=== PATIENT | male | born 1940 | race Two or more races ===

== ENCOUNTER 2021-12-10 09:23 | Inpatient (IN) | payer MEDICARE, OTHER, SELFPAY ==
[~2021-12-10] VITALS: Ht 185.4 cm; Wt 81.6 kg
[~2021-12-10 09:23] MED LIST: ASPI81EC97
[2021-12-10 09:26] VITALS: BP 139/53
--- NOTE | 2021-12-10 09:40 | NUR ---
20G IV ESTABLISHED TO RIGHT AC, LABS DRAWN BEDSIDE AND MOISE SWAB COLLECTED AND WALKED TO LAB.
[2021-12-10] MEDS ORDERED: NACL 0.9% 1,000 ML IV ONE (10:20)
--- NOTE | 2021-12-10 10:35 | NUR ---
PATIENT TAKEN TO CT VIA GURNEY.
[2021-12-10 10:42] LABS: BASOPHILS % (AUTO) 0.1 % (0.0-2.0); HEMATOCRIT 35.8 % (36-52); HEMOGLOBIN 11.8 g/dL (12.0-18.0); LYMPHOCYTES # (AUTO) 0.7 K/uL (2.0-11.5); LYMPHOCYTES % (AUTO) 3.5 % (20.5-51.1); MEAN CORPUSCULAR HEMOGLOBIN 30 pg (27-31); MEAN CORPUSCULAR HGB CONC 33 g/dL (33-37); MEAN CORPUSCULAR VOLUME 90.3 fL (80-94); MONOCYTES # (AUTO) 0.8 K/uL (0.8-1.0); NEUTROPHILS # (AUTO) 18.3 K/uL (1.8-7.7); NEUTROPHILS % (AUTO) 92.4 % (42.2-75.2); PLATELET COUNT (AUTO) 401 K/uL (140-450); RED BLOOD CELL COUNT(AUTO) 3.96 MIL/uL (4.20-6.10); RED CELL DISTRIBUTION WIDTH 14.2 % (11.6-13.7); WHITE BLOOD COUNT (AUTO) 19.9 K/uL (4.8-10.8)
--- NOTE | 2021-12-10 10:45 | NUR ---
80/M NAYAN FROM [facility]. PER EMS NEIGHBORS CALLED 911 REQUESTING A WELLNESS CHECK. EMS STATES UPON ARRIVAL PATIENT WAS FOUND LYING ON GROUND INSIDE HIS MOBILE HOME. PATIENT UNABLE TO STATE HOW HE ENDED UP ON THE GROUND OR HOW LONG HE WAS DOWN. EMS STATES PATIENTS BASELINE ACCORDING TO NEIGHBORS IS AOX4 AND AMBULATORY, UPON ARRIVAL PATIENT IS ORIENTED TO NAME AND PLACE. PATIENT PRESENTS WITH CELLULITIS TO BILATERAL LEGS, DRIED DRESSINGS AND SOCKS TO BOTH LEGS, PATIENT STATES ISSUE HAS BEEN ONGOING FOR ONE MONTH. PATIENT DENIES ANY PAIN OR DISCOMFORT, STATES HE HAS NOT BEEN EATING MUCH, ABLE TO ANSWER QUESTIONS WHEN ASKED, PATIENT IS SLOW TO ANSWER. DENIES N/V/D, CP, SOB OR URINARY SYMPTOMS.
--- NOTE | 2021-12-10 11:45 | NUR ---
PATIENT STATES HE IS UNABLE TO PROVIDE URINE AT THIS TIME, DR. AVILEZ MADE AWARE.
[2021-12-10] MEDS ORDERED: ceFAZolin 1,000 MG VIAL ONE (11:51)
[2021-12-10 12:06] LABS: ANION GAP 16.8 (8-16); ASPARTATE AMINOTRANSFERASE 102 U/L (15-37); CHLORIDE 108 mmol/L (98-107); CREATININE 1.8 mg/dL (0.6-1.3); GLUCOSE 105 mg/dL (74-106); POTASSIUM 4.8 mmol/L (3.5-5.1); SODIUM SERUM 140 mmol/L (136-145); TOTAL BILIRUBIN 1.1 mg/dL (0.0-1.0)
[2021-12-10 12:11] LABS: UREA NITROGEN, BLOOD 78 mg/dL (7-18)
[2021-12-10 12:33] LABS: CKMB RELATIVE INDEX 2.8 (0.0-2.5); CREATINE KINASE MB 37.6 ng/mL (0-3.6)
--- NOTE | 2021-12-10 14:00 | NUR ---
PATIENT APPEARS TO BE RESTING WITH EYES CLOSED, PROVIDED WITH BLANKET AND PILLOW FOR COMFORT. ON BEDSIDE GLUE COOK, WILL CONTINUE TO MONITOR.
[2021-12-10] MEDS ORDERED: ONDANSETRON 4 MG/2 ML VIAL IVP PRN (14:15)
[2021-12-10] MEDS ORDERED: POTASSIUM CHLORIDE 10 MEQ TABER PO PRN (14:15)
[2021-12-10] MEDS ORDERED: HYDROcodone/APAP 5/325 MG 1 TAB TAB PO PRN (14:15)
[2021-12-10] MEDS ORDERED: MORPHINE SULFATE 4 MG/ML SYR IVP PRN (14:15)
[2021-12-10] MEDS ORDERED: ACETAMINOPHEN 325 MG TAB PO PRN (14:15)
[2021-12-10] MEDS ORDERED: MAG SULF 2000 MG/WATER PREMIX 50 ML IV PRN (14:15)
[2021-12-10] MEDS ORDERED: MAGNESIUM OXIDE 400 MG TAB PO PRN (14:15)
--- NOTE | 2021-12-10 16:55 | NUR ---
PATIENT PROVIDED URINE WITH BEDSIDE URINAL, SAMPLE COLLECTED AND HANDED TO DRY PRESS OPERATOR HELPER.
[2021-12-10 17:00] LABS: BILIRUBIN,URINE 1+ (NEGATIVE); BLOOD, URINE 3+ (NEGATIVE); COLOR,URINE YELLOW (YELLOW); LEUKOCYTE ESTERASE ,URINE 1+ (NEGATIVE); NITRITE, URINE NEGATIVE (NEGATIVE); PH,URINE 5.5 (5.0-9.0); UGLUCOSE NEGATIVE (NEGATIVE)
--- NOTE | 2021-12-10 17:45 | NUR ---
PATIENT WET THE BED, WITH THE HELP OF CHAZ GONZÁLES, PATIENTS SHEETS, UNDER PADS AND GOWN CHANGED. PATIENT REPOSITIONED IN BED, LIGHTS DIMMED FOR COMFORT. PATIENT ON BEDSIDE MAIL ORDER CLERK, WILL CONTINUE TO MONITOR.
[2021-12-10] MEDS ORDERED: ATORVASTATIN 20 MG TAB PO SCH (18:41)
[2021-12-10 18:53] LABS: APPEARANCE,URINE HAZY (CLEAR)
[2021-12-10 18:59] LABS: WBC,URINE 0-5 /HPF (0-5)
[2021-12-10] MEDS ORDERED: ECOTRIN 81 MG TABEC PO SCH (19:00)
--- NOTE | 2021-12-10 19:28 | NUR ---
PT REPORT RECEIVED FROM MARYCHUY LIMON FOR CONTINUITY OF PT CARE AT THIS TIME.
--- NOTE | 2021-12-10 19:33 | NUR ---
Pt report given to MARYCHUY BECK. Transfer of care at this time.
--- NOTE | 2021-12-10 19:36 | NUR ---
PT LAYING SUPINE IN BED W BLANKET ON. PT AWAKE AOX3 GCS14. PT BREATHING EVEN AND UNLABORED. PT DENIES ANY PAIN. VSS. ALL PT NEEDS MET AT THIS TIME. NAD NOTED, WILL CONTINUE TO MONITOR.
[2021-12-10] MEDS: PIPERACILLIN/TAZOBACTAM 2.25 GM in DEXTROSE 5% 50 ML IV SCH (21:00)
[2021-12-10] MEDS ORDERED: VANCOMYCIN PER PHARMACY MC PRN (21:55)
[2021-12-10 21:59] LABS: BARBITURATE, URINE NEGATIVE ng/ml (NEG <=200); BENZODIAZEPINE, URINE NEGATIVE ng/mL (NEG <=200); CANNABINOID, URINE NEGATIVE ng/mL (NEG <=50); COCAINE, URINE NEGATIVE ng/mL (NEG <=300); OPIATE, URINE NEGATIVE ng/mL (NEG <=2000); PHENCYCLIDINE SCREEN,URINE NEGATIVE ng/mL (NEG <=25)
--- NOTE | 2021-12-10 22:01 | NUR ---
sPOKE W FOR UPDATE ON PT INFO AT THIS TIME.
[2021-12-10] MEDS ORDERED: PIPERACILLIN/TAZOBACTAM 2.25 GM VIAL IV ONE (22:22)
--- NOTE | 2021-12-10 22:43 | NUR ---
HEP MEDICATION HELD D/T NO PTT AT THIS TIME.
--- NOTE | 2021-12-10 23:43 | NUR ---
PT APPREARS TO BE RESTING W EYES CLOSED IN SUPINE POSITION. BED LOCKED IN LOWEST POSITION W X2 SIDERAILS UP. BREATHING EVEN AND UNLABORED. NAD NOTED, WILL CONTINUE TO MONITOR.. VSS.
[2021-12-11] MEDS ORDERED: VANCOMYCIN 1GM/DEXT 5% PREMIX 200 ML IV SCH (00:30)
--- NOTE | 2021-12-11 03:28 | NUR ---
PT PROVIDED W WATER AT THIS TIME. ALL NEEDS MET.
[2021-12-11] MEDS ORDERED: PIPERACILLIN/TAZOBACTAM 2.25 GM VIAL IV ONE ×3 (05:28→21:47)
[2021-12-11] MEDS: PIPERACILLIN/TAZOBACTAM 2.25 GM in DEXTROSE 5% 50 ML IV SCH ×3 (06:01→23:10)
--- NOTE | 2021-12-11 06:04 | NUR ---
PT PROVIDED W WATER AT THIS TIME. ALL NEEDS MET.
--- NOTE | 2021-12-11 07:19 | NUR ---
Pt report given to MARYCHUY GONSALEZ. Transfer of care at this time.
--- NOTE | 2021-12-11 07:20 | NUR ---
REPORT RECEIVED FROM MARYCHUY BECK FOR TRANSFER OF CARE
[2021-12-11 07:39] LABS: BASOPHILS % (AUTO) 0.1 % (0.0-2.0); HEMATOCRIT 39.3 % (36-52); HEMOGLOBIN 12.7 g/dL (12.0-18.0); LYMPHOCYTES # (AUTO) 0.4 K/uL (2.0-11.5); LYMPHOCYTES % (AUTO) 1.8 % (20.5-51.1); MEAN CORPUSCULAR HEMOGLOBIN 29 pg (27-31); MEAN CORPUSCULAR HGB CONC 32 g/dL (33-37); MEAN CORPUSCULAR VOLUME 90.7 fL (80-94); MONOCYTES # (AUTO) 0.5 K/uL (0.8-1.0); NEUTROPHILS # (AUTO) 21.4 K/uL (1.8-7.7); NEUTROPHILS % (AUTO) 96.1 % (42.2-75.2); PLATELET COUNT (AUTO) 309 K/uL (140-450); RED BLOOD CELL COUNT(AUTO) 4.33 MIL/uL (4.20-6.10); RED CELL DISTRIBUTION WIDTH 13.9 % (11.6-13.7); WHITE BLOOD COUNT (AUTO) 22.2 K/uL (4.8-10.8)
--- NOTE | 2021-12-11 08:12 | NUR ---
MED REC COMPLETED FOR PATIENT
[2021-12-11 08:22] LABS: ALBUMIN 1.8 g/dL (3.4-5.0); ANION GAP 18.2 (8-16); ASPARTATE AMINOTRANSFERASE 103 U/L (15-37); CARBON DIOXIDE 20.8 mmol/L (21-32); CHLORIDE 110 mmol/L (98-107); CREATININE 1.4 mg/dL (0.6-1.3); GLUCOSE 85 mg/dL (74-106); MAGNESIUM 2.5 mg/dL (1.8-2.4); SODIUM SERUM 144 mmol/L (136-145)
[2021-12-11 08:29] LABS: UREA NITROGEN, BLOOD 66 mg/dL (7-18)
--- NOTE | 2021-12-11 08:43 | NUR ---
PT ADMITTED 12/10/[address] SMALL TO TELE. PT TELE HOLD IN ED BED 11
[2021-12-11] MEDS ORDERED: VANCOMYCIN 1,000 MG VIAL ONE (08:50)
--- NOTE | 2021-12-11 09:00 | NUR ---
PT CLEANED BEDSIDE AND PROVIDED WITH FRESH LINEN AND DIAPER
[2021-12-11] MEDS: VANCOMYCIN 1,000 MG in DEXTROSE 5% 250 ML IV SCH (09:14)
--- NOTE | 2021-12-11 09:56 | NUR ---
Patient appears to be resting comfortably in bed. Vital Signs within normal limits. Respirations even and unlabored.
--- NOTE | 2021-12-11 11:20 | NUR ---
PT EATING BREAKFAST TRAY BEDISDE
--- NOTE | 2021-12-11 14:02 | NUR ---
Patient appears to be resting comfortably in bed. Vital Signs within normal limits. Respirations even and unlabored.
--- NOTE | 2021-12-11 14:18 | NUR ---
PT CLEANED BEDSIDE AND PROVIDED WITH FRESH LINEN AND DIAPER
--- NOTE | 2021-12-11 16:31 | NUR ---
PATIENT HAS BEEN SCREENED AND CATEGORIZED MODERATE NUTRITION RISK. PATIENT WILL BE SEEN WITHIN 3-5 DAYS OF ADMISSION. [address]
--- NOTE | 2021-12-11 18:13 | NUR ---
Patient appears to be resting comfortably in bed. Vital Signs within normal limits. Respirations even and unlabored.
--- NOTE | 2021-12-11 19:38 | NUR ---
Pt report given to MARYCHUY KNIGHT. Transfer of care at this time.
--- NOTE | 2021-12-11 19:42 | NUR ---
PATIENT IN THE MIDDLE OF DINNER. TALKING AND FOLLOWING COMMANDS. 10CC FLUSHED THROUGH IV. GCS 14. AAOX3- CONFUSED. VSS. NO SIGNS OF DISTRESS NOTED. SAFETY MEASURES IN PLACE, ATTACHED TO MONITOR AND WILL CONTINUE TO MONITOR PATIENT.
[2021-12-11] MEDS ORDERED: DEXTROSE 50% 50 ML SYR IVP PRN (21:40)
[2021-12-11] MEDS: METOPROLOL 25 MG TAB PO SCH (21:56)
--- NOTE | 2021-12-11 23:29 | NUR ---
provided pericare for patient, used chucks and diaper, and repositioned patient to the right side. patient tolerated well. Safety measures are in placed, attached to monitot and will continue to monitor patient.
--- NOTE | 2021-12-12 00:22 | NUR ---
Patient will be admitted to care of Jeff ESPINOSA. Admited to Telemetry. Will go to room 121B. Belongings list completed. Report to Karmen PERRIN.
--- NOTE | 2021-12-12 00:59 | NUR ---
tx patient to the floor via rkaty
--- NOTE | 2021-12-12 01:15 | NUR ---
Patient received from ER as a new Tele admission. Patient is AA&Ox3 with periods of confusion and able to follow commands. Chest rise is even and unlabored with diminished lung sounds on RA. Normal heart sounds are present and was attached to a monument setter. Active bowel sounds x4 on auscultation, denies pain with palpation, no noted distention. Patient has wounds on both legs bilaterally and dressing change was provided and pictures were taken to add to Patient's chart. Deep pressure wounds were noted to the R foot that were closed pictures are in the chart. There was redness noticed on the patients sacrum and a pressure ulcer to the left buttocks. Wound care was provided to the sacral area and a picture was also taken. PIV were noted to Left and Right AC both 20G patent with no s/s of infiltration. Patient is currently stable and has been oriented to the call light, room and staff. Bed is locked in the lowest position, with bed rails up. Will continue to monitor.
[2021-12-12 03:51] VITALS: BP 124/52
[2021-12-12] MEDS ORDERED: PIPERACILLIN/TAZOBACTAM 2.25 GM VIAL IV ONE (04:20)
[2021-12-12] MEDS: PIPERACILLIN/TAZOBACTAM 2.25 GM in DEXTROSE 5% 50 ML IV SCH ×3 (04:51→21:20)
[2021-12-12] MEDS: BLOOD GLUCOSE MONITORING 1 DEV DEV FS SCH ×4 (06:42→21:21)
--- NOTE | 2021-12-12 07:36 | NUR ---
Patient is currently resting with no s/s of distress noted at this time. Chest rise is even and unlabored. Patient is able to verbalize needs and has call light within reach. All current needs have been met throughout the shift. Bed is locked in the lowest position with bed rails up. Will differ further care to AM shift for continuity of care.
--- NOTE | 2021-12-12 07:37 | NUR ---
BEDSIDE REPORT RECEIVED FROM NAPPER FIXER NURSE , PT IN BE BED IN LOW POSITION , BED ALARM IS ON, BELONGINGS WITHIN REACH, CALL LIGHT WITHIN REACH , ALL SAFETY MEASURES ARE IN PLACE. PATIENT ASKED TO CALL FOR ASSISTANCE BEFORE GETTING OUT OF BED
[2021-12-12 08:00] VITALS: BP 125/59
[2021-12-12] MEDS: ATORVASTATIN 20 MG TAB PO SCH (08:44)
[2021-12-12] MEDS: ASPIRIN 81 MG TAB.CHEW PO SCH (08:44)
[2021-12-12] MEDS: METOPROLOL 25 MG TAB PO SCH ×2 (08:44→21:19)
--- NOTE | 2021-12-12 08:52 | NUR ---
patient medications given per md order. pt educated and verbalized understanding , pt tolerated thin liquids well. patient advised to call for any needs and oriented to room and hospital policies. all safety measures are in place.
[2021-12-12] MEDS: VANCOMYCIN 1,000 MG in DEXTROSE 5% 250 ML IV SCH (09:41)
[2021-12-12 10:14] LABS: BASOPHILS % (AUTO) 0.2 % (0.0-2.0); EOSINOPHILS % (AUTO) 0.4 % (0.0-4.0); HEMATOCRIT 36.1 % (36-52); HEMOGLOBIN 11.8 g/dL (12.0-18.0); LYMPHOCYTES # (AUTO) 0.8 K/uL (2.0-11.5); LYMPHOCYTES % (AUTO) 6.6 % (20.5-51.1); MEAN CORPUSCULAR HEMOGLOBIN 30 pg (27-31); MEAN CORPUSCULAR HGB CONC 33 g/dL (33-37); MEAN CORPUSCULAR VOLUME 90.7 fL (80-94); MONOCYTES # (AUTO) 0.3 K/uL (0.8-1.0); MONOCYTES % (AUTO) 2.6 % (1.7-9.3); NEUTROPHILS # (AUTO) 10.6 K/uL (1.8-7.7); NEUTROPHILS % (AUTO) 90.2 % (42.2-75.2); PLATELET COUNT (AUTO) 353 K/uL (140-450); RED BLOOD CELL COUNT(AUTO) 3.97 MIL/uL (4.20-6.10); RED CELL DISTRIBUTION WIDTH 13.9 % (11.6-13.7); WHITE BLOOD COUNT (AUTO) 11.7 K/uL (4.8-10.8)
[2021-12-12 10:22] LABS: ALBUMIN 1.8 g/dL (3.4-5.0); ANION GAP 10.9 (8-16); ASPARTATE AMINOTRANSFERASE 103 U/L (15-37); CARBON DIOXIDE 27.4 mmol/L (21-32); CHLORIDE 109 mmol/L (98-107); CREATININE 1.6 mg/dL (0.6-1.3); GLUCOSE 127 mg/dL (74-106); MAGNESIUM 2.3 mg/dL (1.8-2.4); POTASSIUM 4.3 mmol/L (3.5-5.1); SODIUM SERUM 143 mmol/L (136-145); TOTAL BILIRUBIN 0.8 mg/dL (0.0-1.0); UREA NITROGEN, BLOOD 57 mg/dL (7-18)
--- NOTE | 2021-12-12 11:07 | NUR ---
DC PLANNING: CLINICAL REVIEW GIVEN TO DREW NAJERA AT [facility]. PATIENT PRESENTED TO ED AFTER NEIGHBORS CALLED 911 AFTER NOT SEEING HIM FOR SEVERAL DAYS. ADMITTING DX OF RHABDOMYOLYSIS, ON IVF'S. NOTED TO HAVE LE CELLULITIS AND ULCERATIONS, DEHYDRATED, IN [place]. CARDIOLOGY, ID AND NEPHRO CONSULTS ORDERED, ON VANCO AND ZOSYN. ANTICIPATE THAT THE PATIENT WILL NEED SNF PLACEMENT FOR MANAGEMENT OF ULCERATIONS, CM WILL FOLLOW FOR NEEDS. Addendum: 12/13/21 at 1420 by Fabby Acuna CM DC PLANNING: CM SPOKE WITH REINALDO AT [facility], STATES THAT THEY ARE LOOKING FOR SNF FOR THE PATIENT. CLINICAL PACKET FOR SNF REFERRAL SENT TO REINALDO WHO WILL WORK ON PLACEMENT. CM WILL FOLLOW FOR NEEDS. Addendum: 12/17/21 at 1045 by Fabby Acuna CM DC PLANNING: CM SPOKE WITH REGAL DREW NAJERA [facility] PACKET FAXED THURSDAY, ENDORSED THAT PATIENT HAD A NON-EXCISIONAL DEBRIDEMENT OF LE'S YESTERDAY, WILL NEED SNF PLACEMENT. CM WILL FOLLOW FOR NEEDS AND PLACEMENT. Addendum: 12/17/21 at 1505 by Fabby Acuna CM DC PLANNING: DREW SPOKE WITH DREW NAJERA AT [facility], PATIENT TENTATIVELY ACCEPTED TO [facility] TOMORROW. CM WILL WAIT FOR DC ORDER AND CONFIRMATION OF SNF ACCEPTANCE AND WILL FOLLOW FOR NEEDS. Addendum: 12/18/21 at 0906 by Fabby Acuna DC PLANNING: VM FROM REINALDO AT [facility], PATIENT ACCEPTED TO [facility], REINALDO TRIED TO DC LAST NIGHT BUT WAS UNABLE TO FACILITATE DC. VM LEFT FOR REINALDO ASKING FOR F/U ON DC TODAY. CM WILL FOLLOW. Addendum: 12/18/21 at 1415 by Fabby Acuna CM DC PLANNING: DREW SPOKE WITH DREW ROBERTS AT [facility] REGARDING PATIENT RETURNING TO [facility], ENDORSED THAT FACILITY CALLED NURSING AND STATED THEY WILL TAKE THE PATIENT BACK. [facility] WILL CONFIRM WITH [facility] AND WILL ARRANGE TRANSPORT IF THEY ARE ACCEPTING BACK. [facility]'S NUMBER IS [phone]. DREW WILL FOLLOW. Addendum: 12/18/21 at 1647 by Fabby Acuna CM DC PLANNING: DREW AGAIN SPOKE WITH CONNOR RangelNOT ARMANDO) AT [facility], STATES HE WILL FOLLOW UP WITH [facility] AGAIN TO SEE IF THEY WILL ACCEPT TODAY. CM WILL FOLLOW. Addendum: 12/19/21 at 1140 by Fabby Acuna CM DC PLANNING: CM SPOKE WITH DREW RYAN AT [facility], STATES THAT [facility] WILL NOT TAKE BACK THE PATIENT. STATES THAT THEY ARE LOOKING FOR ANOTHER FACILITY AND WILL UPDATE CM WHEN ONE IS FOUND. CM WILL FOLLOW. Addendum: 12/20/21 at 1432 by Fabby Acuna CM DC PLANNING: CMM FOLLOWED UP WITH CONNOR AT [facility] ([phone]), STILL LOOKING FOR PLACEMENT FOR SNF. CM WILL FOLLOW. Addendum: 12/24/21 at 1353 by Fabby Acuna CM DC PLANNING: CM SPOKE WITH REINALDO AT [facility], NO SNF BEDS AVAILABLE YET. CM WILL FOLLOW. Addendum: 12/25/21 at 1128 by Fabby Acuna CM DC PLANNING: PATIENT ACCEPTED TO [facility], ROOM 114A. NUMBER TO CALL REPORT IS [phone], PATIENT WILL BE PICKED UP BETWEEN 1-2 PM, [facility] ARRANGING TRANSPORT. CM WILL FOLLOW.
[2021-12-12 12:00] VITALS: BP 111/57
--- NOTE | 2021-12-12 12:18 | NUR ---
BG 112 , PATIENT WITHIN THERAPEUTIC RANGE NO ACTION AT THIS TIME PER MD ORDER.
--- NOTE | 2021-12-12 13:15 | NUR ---
MICAELA CHANEYWASH CREW PERSON CALLED TO CHECK ON PATIENT , PT VERBALIZED CONSENT TO GIVE INFORMATION ABOUT STAY TO BUSINESS DEVELOPMENT ASSOCIATE . ALL SAFETY MEASURES IN PLACE.
[2021-12-12 16:00] VITALS: BP 131/54
--- NOTE | 2021-12-12 17:57 | NUR ---
PATIENT DISLOGED IV , NEW IV STARTED ON HAND RIGHT 24 G , PT TOLERATED WELL NO S/SX OF DISTRESS AT THIS TIME , PATIENT OFFERED SNACKS REFUSED , PATIENT DRY AND CLEAN AT THIS TIME ALL SAFETY MEASURES ARE IN PLACE
--- NOTE | 2021-12-12 19:25 | NUR ---
PATIENT REPORT GIVEN TO PROCESSING REP NURSE PATIENT RESTING IN BED EYES CLOSED BREATHING SYMMETRICAL AND UNLABORED, ALL SAFETY MEASURES ARE IN PLACE.
--- NOTE | 2021-12-12 19:25 | NUR ---
RECEIVED BEDSIDE REPORT FROM DAY SHIFT NURSE. PATIENT SLEEPING AROUSABLE BY NAME AND TOUCH. RESPIRATION EVEN UNLABORED ON ROOM AIR. NO DISTRESS NOTED. SKIN IS WARM AND DRY. BILATERAL LOWER EXTREMITY WOUND NOTED. DRESSING DRY AND INTACT. IV PATENT AND INTACT. PLAN OF CARE DISCUSSED. ALL SAFETY MEASURES IN PLACE. BED IS AT LOW POSITION. CALL LIGHT WITHIN REACH. WILL CONTINUE TO MONITOR.
[2021-12-12 20:00] VITALS: BP 108/55
--- NOTE | 2021-12-12 21:20 | NUR ---
ALL SCHEDULED MEDS WERE GIVEN PER ORDER. WILL CONTINUE TO MONITOR.
--- NOTE | 2021-12-12 22:45 | NUR ---
PATIENT ASKED FOR COFFEE, DECAF COFFEE GIVEN. WILL CONTINUE TO MONITOR
[2021-12-13] VITALS: BP 116/56
--- NOTE | 2021-12-13 00:14 | NUR ---
VITALS WERE TAKEN
--- NOTE | 2021-12-13 01:20 | NUR ---
WOUND CARE PROVIDED
--- NOTE | 2021-12-13 02:03 | NUR ---
MADE ROUNDS, PATIENT SLEEPING RESPIRATION EVEN UNLABORED ON ROOM AIR. NO DISTRESS NOTED. WILL CONTINUE TO MONITOR.
--- NOTE | 2021-12-13 03:25 | NUR ---
MADE ROUNDS, PATIENT SLEEPING RESPIRATION EVEN UNLABORED ON ROOM AIR, NO DISTRESS NOTED. WILL CONTINUE TO MONITOR.
[2021-12-13 04:00] VITALS: BP 119/59
--- NOTE | 2021-12-13 04:30 | NUR ---
VITALS WERE TAKEN
--- NOTE | 2021-12-13 05:51 | NUR ---
AM CARE PROVIDED
[2021-12-13] MEDS: PIPERACILLIN/TAZOBACTAM 2.25 GM in DEXTROSE 5% 50 ML IV SCH ×3 (06:04→21:25)
[2021-12-13] MEDS: BLOOD GLUCOSE MONITORING 1 DEV DEV FS SCH ×4 (06:43→21:34)
[2021-12-13 07:46] LABS: BASOPHILS % (AUTO) 0.1 % (0.0-2.0); EOSINOPHILS # (AUTO) 0.1 K/uL (0-0.4); EOSINOPHILS % (AUTO) 1.4 % (0.0-4.0); HEMATOCRIT 31.4 % (36-52); HEMOGLOBIN 10.5 g/dL (12.0-18.0); LYMPHOCYTES # (AUTO) 0.8 K/uL (2.0-11.5); LYMPHOCYTES % (AUTO) 11.3 % (20.5-51.1); MEAN CORPUSCULAR HEMOGLOBIN 30 pg (27-31); MEAN CORPUSCULAR HGB CONC 34 g/dL (33-37); MEAN CORPUSCULAR VOLUME 89.6 fL (80-94); MONOCYTES # (AUTO) 0.3 K/uL (0.8-1.0); MONOCYTES % (AUTO) 4.5 % (1.7-9.3); NEUTROPHILS % (AUTO) 82.7 % (42.2-75.2); PLATELET COUNT (AUTO) 320 K/uL (140-450); RED CELL DISTRIBUTION WIDTH 13.8 % (11.6-13.7); WHITE BLOOD COUNT (AUTO) 7.2 K/uL (4.8-10.8)
[2021-12-13 08:00] VITALS: BP 128/88
[2021-12-13 08:18] LABS: ALBUMIN 1.7 g/dL (3.4-5.0); ANION GAP 11.7 (8-16); ASPARTATE AMINOTRANSFERASE 88 U/L (15-37); CARBON DIOXIDE 24.7 mmol/L (21-32); CHLORIDE 109 mmol/L (98-107); CREATININE 1.4 mg/dL (0.6-1.3); GLUCOSE 99 mg/dL (74-106); MAGNESIUM 2.1 mg/dL (1.8-2.4); POTASSIUM 4.4 mmol/L (3.5-5.1); SODIUM SERUM 141 mmol/L (136-145); TOTAL BILIRUBIN 0.7 mg/dL (0.0-1.0); UREA NITROGEN, BLOOD 50 mg/dL (7-18)
[2021-12-13] MEDS: VANCOMYCIN 1,000 MG in DEXTROSE 5% 250 ML IV SCH ×2 (09:00→09:37)
[2021-12-13] MEDS: ASPIRIN 81 MG TAB.CHEW PO SCH (09:37)
[2021-12-13] MEDS: METOPROLOL 25 MG TAB PO SCH ×2 (09:38→21:00)
[2021-12-13] MEDS: ATORVASTATIN 20 MG TAB PO SCH (09:38)
--- NOTE | 2021-12-13 10:25 | NUR ---
PRESSURE INJURY TO LEFT BUTTOCK STAGE 3 WITH 5X4X0.2CM WOUND BED RED ,MOIST NO ODOR, PERIWOUND SKIN BROWN THIN SCAB. DIABETIC ULCER TO RIGHT HEEL 3X4X0.2CM WOUND BED 50% RED GRANULATING TISSUE AND 50 % BROWN/BLACK TISSUE, TIKI-WOUND SKIN MOIST, NO ODOR, SMALL AMOUNT SEROUS DRAINAGE, NO ODOR. -RECOMMENDATIONS: CLEANSE LEFT BUTTOCK AND RIGHT HEEL WOUNDS WITH NS, PAT DRY, APPLY THERAHONEY GEL TO WOUND BED AND COVER WITH FOAM DRESSING QD AND PRN IF SOILING Addendum: 12/13/21 at 1057 by Per Slaughter RN (Grace) PT. ADMITTED WITH PRESSURE INJURY AND DIABETIC ULCERS. PHOTOS OBTAINED AND REVIEW BY ER DOCTOR UPON ADMISSION
--- NOTE | 2021-12-13 10:26 | NUR ---
WOUND CARE EVALUATION NOTE: SKIN ASSESSMENT DONE WITH THIS 80 Y/O PT. PT. IS AWAKE, EATING B-FAST, QUESTIONS ASKED AND NO ANSWER BACK. PAST MEDICAL HX INCLUDES HTN, DM, CAD S/P CABG,HYPERLIPIDEMIA. ALL ABOVE INFORMATION OBTAINED FROM ADMISSION H&P. SKIN IS WARM AND DRY, BLE NO HAIR GROWTH, +2 EDEMA. DORSAL PEDAL PULSES PRESENT AND DIMINISHED, THICKEN FUNGAL TOENAILS X 10 TOES. PLAN OF CARE DISCUSSED WITH PRIMARY RN. INTEGUMENTARY: -LIPS AND ORAL MUCOSA DRY AND CLEAN. SKIN INTACT. -INCONTINENT ASSOCIATE DERMATITIS (IAD) TO: B/L GROINS, TO SCROTAL, SKIN RED AND MOIST -CELLULITIS LLE FROM KNEE DOWN TO DORSAL FOOT ANTERIOR AND POSTERIOR WITH FULL THICKNESS SKIN LOSS, LARGEST 11X6X0.2 CM WOUND BED RED, SMALL AMOUNT SEROUS DRAINAGE, NO ODOR, TIKI WOUND SKIN MOIST, WRINKLING WITH DRY PEELING SCALY SKIN -CELLULITIS INFECTED WOUND RLE FROM KNEE DOWN TO LATERAL TIKI-ANKLE FROM ANTERIOR AND POSTERIOR WITH FULL THICKNESS SKIN LOSS, LARGEST MEASUREMENT 12X7X0.2CM, WOUND BED RED, SMALL AMOUNT SEROUS DRAINAGE, NO ODOR, TIKI WOUND SKIN INFECTED SLOUGH TISSUE MODERATE AMOUNT PURULENT DRAINAGE, WRINKLING WITH MOIST SKIN -DIABETIC ULCER TO RIGHT HALLUX PLANTAR AREA 1X1CM BROWN STABLE ESCHAR TISSUE RECOMMENDATIONS: -SURGEON CONSULT FOR RLE DEBRIDEMENT -APPLY THIN LAYER OF HYDROGUARD TO R/L GROINS EXTENDED TO SCROTAL AREA BID AND PRN IF SOILING - CLEANSE LEFT AND RIGHT LOWER LEG WITH WOUNDS WITH NS, PAT DRY AND APPLY HYDROCOLLOID DRESSING TO SLOUGH TISSUE AND XEROFORM DRESSING TO RED TISSUE, COVER WITH ABD PAD, WRAP WITH KERLIX ROLL 3X/WEEK ON MWF AND PRN IF SOILING -PAINT DIABETIC ULCER TO RIGHT HALLUX PLANTAR AREA WITH BETADINE SWAP BID AND ENVIRONMENTAL ANALYST -APPLY HEEL PROTECTORS TO BOTH HEELS AT ALL TIMES -OFFLOAD BILATERAL HEELS BY PLACING PILLOWS UNDER CALVES UNLESS OTHERWISE CONTRAINDICATED -PRESSURE REDISTRIBUTION SURFACE THERAPY -TURN AND REPOSITION Q2H, OFFLOAD SACRALCOCCYX AND BUTTOCKS BY TURNING RIGHT AND LEFT -CONTINUE TO FOLLOW RD RECOMMENDATIONS
[2021-12-13 12:00] VITALS: BP 107/56
[2021-12-13] MEDS: GAUZE TP SCH (13:26)
[2021-12-13] MEDS: THERAHONEY GEL 42.5 GM TP SCH (13:26)
[2021-12-13] MEDS: HYDRAGUARD CREAM TP SCH (13:26)
[2021-12-13 16:00] VITALS: BP 115/57
--- NOTE | 2021-12-13 19:30 | NUR ---
ENDORSED TO INFORMATICS ANALYST NURSE FOR CONTINUITY OF CARE.
--- NOTE | 2021-12-13 19:31 | NUR ---
RECEIVED REPORT FROM AM NURSE. PATIENT IS AWAKE IN BED WELL RESTED. VERBALLY RESPONSIVE. ABLE TO COMMUNICATE WITH HIS NEEDS. NO S/S OF RESPIRATORY DISTRESS. BREATHING EVEN UNLABORED. NO COMPLAINTS OF PAIN. SAFETY PRECAUTIONS IN PLACE. CALL LIGHT WITHIN REACH.
--- NOTE | 2021-12-13 19:31 | NUR ---
RECEIVED PATIENT FROM AM NURSE. PATIENT AWAKE IN HIGH FOWLERS POSITION WITH O2 AT 2L NC TOLERATING WELL. NO ACUTE DISTRESS. BREATHING REGULAR UNLABORED. IVF INFUSING ON THE LAC ORDERED BY . SAFETY MEASURES IN PLACE. CALL LIGHT WITHIN REACH. Addendum: 12/13/21 at 2017 by Jennifer Dominique RN RN WRONG PATIENT.
[2021-12-13 20:00] VITALS: BP 96/51
--- NOTE | 2021-12-13 21:30 | NUR ---
SCHEDULED MEDICATIONS GIVEN PER MD ORDERED.
[2021-12-13] MEDS: INSULIN LISPRO SLIDING SCALE 100 UNITS/ML VIAL SUBQ PRN (21:34)
[2021-12-14] VITALS: BP 100/55
[2021-12-14] MEDS: HYDRAGUARD CREAM TP SCH ×2 (01:41→13:09)
[2021-12-14] MEDS: GAUZE TP SCH ×2 (01:41→13:09)
--- NOTE | 2021-12-14 02:09 | NUR ---
PATIENT IS SLEEPING. CHEST RISE AND FALL, NO DISTRESS. CALL LIGHT WITHIN REACH.
[2021-12-14 04:00] VITALS: BP 101/57
[2021-12-14] MEDS: PIPERACILLIN/TAZOBACTAM 2.25 GM in DEXTROSE 5% 50 ML IV SCH ×3 (04:28→21:19)
[2021-12-14] MEDS: BLOOD GLUCOSE MONITORING 1 DEV DEV FS SCH ×4 (06:32→21:29)
--- NOTE | 2021-12-14 06:32 | NUR ---
BLOOD SUGAR WAS 100 , NO INSULIN COVERAGE NEEDED.
--- NOTE | 2021-12-14 07:38 | NUR ---
ENDORSED PATIENT TO AM RN FOR CONTINUITY OF CARE.
[2021-12-14 08:00] VITALS: BP 109/62
[2021-12-14 08:20] LABS: BASOPHILS % (AUTO) 0.1 % (0.0-2.0); EOSINOPHILS # (AUTO) 0.1 K/uL (0-0.4); EOSINOPHILS % (AUTO) 1.5 % (0.0-4.0); HEMATOCRIT 32.2 % (36-52); HEMOGLOBIN 10.7 g/dL (12.0-18.0); LYMPHOCYTES # (AUTO) 0.8 K/uL (2.0-11.5); LYMPHOCYTES % (AUTO) 9.1 % (20.5-51.1); MEAN CORPUSCULAR HEMOGLOBIN 30 pg (27-31); MEAN CORPUSCULAR HGB CONC 33 g/dL (33-37); MEAN CORPUSCULAR VOLUME 89.7 fL (80-94); MONOCYTES # (AUTO) 0.4 K/uL (0.8-1.0); MONOCYTES % (AUTO) 4.4 % (1.7-9.3); NEUTROPHILS # (AUTO) 7.2 K/uL (1.8-7.7); NEUTROPHILS % (AUTO) 84.9 % (42.2-75.2); PLATELET COUNT (AUTO) 293 K/uL (140-450); RED BLOOD CELL COUNT(AUTO) 3.59 MIL/uL (4.20-6.10); RED CELL DISTRIBUTION WIDTH 13.9 % (11.6-13.7); WHITE BLOOD COUNT (AUTO) 8.5 K/uL (4.8-10.8)
[2021-12-14 08:37] LABS: ALBUMIN 1.7 g/dL (3.4-5.0); ANION GAP 11.4 (8-16); ASPARTATE AMINOTRANSFERASE 64 U/L (15-37); CARBON DIOXIDE 25.9 mmol/L (21-32); CHLORIDE 110 mmol/L (98-107); CREATININE 1.3 mg/dL (0.6-1.3); GLUCOSE 91 mg/dL (74-106); MAGNESIUM 1.9 mg/dL (1.8-2.4); POTASSIUM 4.3 mmol/L (3.5-5.1); SODIUM SERUM 143 mmol/L (136-145); TOTAL BILIRUBIN 0.6 mg/dL (0.0-1.0); UREA NITROGEN, BLOOD 37 mg/dL (7-18)
[2021-12-14] MEDS: ATORVASTATIN 20 MG TAB PO SCH (08:54)
[2021-12-14] MEDS: METOPROLOL 25 MG TAB PO SCH ×2 (08:55→21:18)
[2021-12-14] MEDS: ASPIRIN 81 MG TAB.CHEW PO SCH (08:55)
--- NOTE | 2021-12-14 08:57 | NUR ---
MEDICATIONS GIVEN PER MD ORDER, PT EDUCATED AND VERBALIZED UNDERSTANDING ALL SAFETY MEASURES ARE IN PLACE.
[2021-12-14] MEDS: VANCOMYCIN 1,000 MG in DEXTROSE 5% 250 ML IV SCH (09:31)
--- NOTE | 2021-12-14 09:45 | NUR ---
MD SANTOS AT BEDSIDE , EXPLAINED PROCEDURE TO PATIENT , ALTERNATIVES RISKS, MORBIDITIES AND MORTALITIES ALL EXPLAINED. PATIENT VERBALIZED UNDERSTANDING AND AGREED FOR PROCEDURE , CONSENT OBTAINED , WILL TAKE PLACE THURSDAY
--- NOTE | 2021-12-14 10:20 | NUR ---
(12/14/21) RD INITIAL ASSESSMENT COMPLETED PLEASE REFER TO NUTRITION ASSESSMENT UNDER CARE ACTIVITY FOR ESTIMATED NUTRITIONAL NEEDS. RD RECOMMENDATIONS: 1. CONTINUE CARDIAC DIET TOLERATED. 2. RDN ADDED DIET HEALTH SHAKES 4-OZ WITH EACH MEALS TID; PROVIDES 600 KCAL AND 21 GM PROTEIN TO HELP MEET EST NEEDS. 3. RD WILL F/U 3-5 DAYS; MODERATE RISK. CARMINA HARVEY MS, RDN
--- NOTE | 2021-12-14 11:09 | NUR ---
WOUND CARE DONE PER OH ORDERS, PER OH HE WANTS FLUFFLY KURLIX MOIST
[2021-12-14] MEDS: INSULIN LISPRO SLIDING SCALE 100 UNITS/ML VIAL SUBQ PRN (11:56)
[2021-12-14 12:00] VITALS: BP 109/54
[2021-12-14] MEDS: THERAHONEY GEL 42.5 GM TP SCH (13:09)
--- NOTE | 2021-12-14 13:52 | NUR ---
PATIENT RESTING IN BED , NO S/SX OF DISTRESS AT THIS TIME
[2021-12-14 16:00] VITALS: BP 102/72
--- NOTE | 2021-12-14 17:52 | NUR ---
PATIENT RESTING IN BED ALL SAFETY MEASURES IN PLACE
--- NOTE | 2021-12-14 19:30 | NUR ---
PATIENT ENDORSED TO CAN MAKER
[2021-12-14 20:00] VITALS: BP 117/64
--- NOTE | 2021-12-14 21:29 | NUR ---
SCHEDULED MEDICATIONS ADMINISTERED ORDERED.
--- NOTE | 2021-12-14 21:30 | NUR ---
BLOOD SUGAR WAS 130 NO INSULIN COVERAGE NEEDED.
[2021-12-15] VITALS: BP 108/62
[2021-12-15] MEDS: GAUZE TP SCH ×2 (01:00→12:37)
[2021-12-15] MEDS: HYDRAGUARD CREAM TP SCH ×2 (01:00→12:37)
--- NOTE | 2021-12-15 02:03 | NUR ---
PATIENT SLEEPING. NO S/S OF RESPIRATORY DISTRESS. RESPIRATION REGULAR UNLABORED. SAFETY PRECAUTIONS ARE IN PLACE. CALL LIGHT WITHIN REACH.
[2021-12-15 04:00] VITALS: BP 141/71
[2021-12-15] MEDS: PIPERACILLIN/TAZOBACTAM 2.25 GM in DEXTROSE 5% 50 ML IV SCH ×3 (04:19→21:00)
--- NOTE | 2021-12-15 04:19 | NUR ---
ZOSYN ADMINISTERED SCHEDULED.
[2021-12-15] MEDS: BLOOD GLUCOSE MONITORING 1 DEV DEV FS SCH ×4 (07:02→21:00)
--- NOTE | 2021-12-15 07:40 | NUR ---
ENDORSED PATIENT TO AM NURSE FOR CONTINUITY OF CARE.
[2021-12-15 08:00] VITALS: BP 134/61
[2021-12-15 08:08] LABS: BASOPHILS % (AUTO) 0.1 % (0.0-2.0); EOSINOPHILS # (AUTO) 0.2 K/uL (0-0.4); HEMATOCRIT 33.5 % (36-52); LYMPHOCYTES # (AUTO) 0.8 K/uL (2.0-11.5); MEAN CORPUSCULAR HEMOGLOBIN 30 pg (27-31); MEAN CORPUSCULAR HGB CONC 33 g/dL (33-37); MEAN CORPUSCULAR VOLUME 90.5 fL (80-94); MONOCYTES # (AUTO) 0.4 K/uL (0.8-1.0); NEUTROPHILS # (AUTO) 7.4 K/uL (1.8-7.7); PLATELET COUNT (AUTO) 251 K/uL (140-450); RED CELL DISTRIBUTION WIDTH 13.7 % (11.6-13.7); WHITE BLOOD COUNT (AUTO) 8.8 K/uL (4.8-10.8)
[2021-12-15 08:37] LABS: NEUTROPHILS % (AUTO) 83.9 % (42.2-75.2)
[2021-12-15] MEDS: ASPIRIN 81 MG TAB.CHEW PO SCH (09:11)
[2021-12-15] MEDS: ATORVASTATIN 20 MG TAB PO SCH (09:11)
[2021-12-15] MEDS: METOPROLOL 25 MG TAB PO SCH ×2 (09:12→21:00)
[2021-12-15] MEDS: VANCOMYCIN 1,000 MG in DEXTROSE 5% 250 ML IV SCH (09:20)
--- NOTE | 2021-12-15 09:20 | NUR ---
SCHEDULED MEDICATIONS DUE GIVEN. WILL CONTINUE TO MONITOR.
[2021-12-15 12:00] VITALS: BP 109/62
[2021-12-15 12:13] LABS: ALBUMIN 1.5 g/dL (3.4-5.0); ANION GAP 10.4 (8-16); ASPARTATE AMINOTRANSFERASE 56 U/L (15-37); CARBON DIOXIDE 25.7 mmol/L (21-32); CHLORIDE 104 mmol/L (98-107); CREATININE 1.2 mg/dL (0.6-1.3); GLUCOSE 145 mg/dL (74-106); MAGNESIUM 1.9 mg/dL (1.8-2.4); POTASSIUM 4.1 mmol/L (3.5-5.1); SODIUM SERUM 136 mmol/L (136-145); TOTAL BILIRUBIN 0.5 mg/dL (0.0-1.0); UREA NITROGEN, BLOOD 30 mg/dL (7-18)
[2021-12-15] MEDS: THERAHONEY GEL 42.5 GM TP SCH (12:37)
[2021-12-15] MEDS: INSULIN LISPRO SLIDING SCALE 100 UNITS/ML VIAL SUBQ PRN (12:37)
--- NOTE | 2021-12-15 12:49 | NUR ---
SCHEDULED MEDICATIONS DUE GIVEN. WILL CONTINUE TO MONITOR.
[2021-12-15 16:00] VITALS: BP 141/71
--- NOTE | 2021-12-15 18:08 | NUR ---
SCHEDULED MEDICATIONS DUE GIVEN. WILL CONTINUE TO MONITOR.
--- NOTE | 2021-12-15 19:41 | NUR ---
GAVE REPORT TO DISH ROOM WORKER NURSE FOR CONTINUITY OF CARE PATIENT IN STABLE. CONDITION.
[2021-12-16] MEDS: GAUZE TP SCH ×2 (01:20→12:18)
[2021-12-16] MEDS: HYDRAGUARD CREAM TP SCH ×2 (01:20→12:18)
[2021-12-16 01:22] VITALS: BP 135/70
[2021-12-16 04:43] VITALS: BP 131/69
[2021-12-16] MEDS: PIPERACILLIN/TAZOBACTAM 2.25 GM in DEXTROSE 5% 50 ML IV SCH ×3 (05:17→21:00)
[2021-12-16] MEDS ORDERED: MIDAZOLAM 2 MG/2 ML VIAL ONE (07:23)
[2021-12-16] MEDS ORDERED: fentaNYL citrate 0.05 MG/ML VIAL ONE (07:24)
[2021-12-16] MEDS ORDERED: PROPOFOL 200 MG/20 ML VIAL IV ONE (07:24)
[2021-12-16] MEDS ORDERED: LIDOCAINE MPF 2% 100 MG/5 ML VIAL INJ ONE (07:25)
[2021-12-16] MEDS: BLOOD GLUCOSE MONITORING 1 DEV DEV FS SCH ×4 (07:30→21:00)
--- NOTE | 2021-12-16 07:30 | NUR ---
RECEIVED REPORT FROM HARDWOOD FLOOR FINISHER FOR CONTINUITY OF CARE. PATIENT DRAFTER LANDSCAPE FOR SURGERY TODAY FOR DEBRIDEMENT OF BILATERAL LOWER LEG, CONSENT SIGNED AND IN THE CHART. IN STABLE CONDITION.
[2021-12-16] MEDS ORDERED: BUPIVACAINE-MPF 0.25% 30 ML VIAL INJ ONE (07:39)
[2021-12-16] MEDS ORDERED: BLOOD GLUCOSE MONITORING 1 DEV DEV FS ONE ×2 (07:45)
[2021-12-16] MEDS ORDERED: NACL 0.9% 1,000 ML IV SCH ×2 (07:45)
[2021-12-16] MEDS ORDERED: MEPERIDINE 25 MG/ML SYR IVP PRN ×2 (07:45)
[2021-12-16] MEDS ORDERED: ONDANSETRON 4 MG/2 ML VIAL IVP PRN ×2 (07:45)
[2021-12-16] MEDS ORDERED: HYDROmorphone 1 MG/ML AMP IVP PRN ×2 (07:45)
[2021-12-16 08:00] VITALS: BP 123/72
--- NOTE | 2021-12-16 09:05 | NUR ---
PATIENT BACK FROM SURGERY REPORT GIVEN MY MARYCHUY TEJADA FOR CONTINUITY OF CARE. PATEINT ALERT AWAKE NOT IN DISTRESS NOTED. VITALS STABLE. DUE MEDICATIONS WILL BE GIVEN, WILL CONTINUE TO MONITOR.
[2021-12-16] MEDS: ASPIRIN 81 MG TAB.CHEW PO SCH (09:27)
[2021-12-16] MEDS: METOPROLOL 25 MG TAB PO SCH ×2 (09:27→21:00)
[2021-12-16] MEDS: ATORVASTATIN 20 MG TAB PO SCH (09:27)
[2021-12-16] MEDS: HYDROCOLLOID DRESSING TP SCH (09:30)
[2021-12-16] MEDS: VANCOMYCIN 1,000 MG in DEXTROSE 5% 250 ML IV SCH (09:34)
--- NOTE | 2021-12-16 09:34 | NUR ---
VANCO IVPB GIVEN AND INFUSING WELL. WILL CONTINUE TO MONITOR.
[2021-12-16] MEDS: INSULIN LISPRO SLIDING SCALE 100 UNITS/ML VIAL SUBQ PRN ×2 (11:53→23:08)
[2021-12-16 12:00] VITALS: BP 98/63
[2021-12-16] MEDS: NON ADHERENT DRESSING TP SCH (12:19)
[2021-12-16] MEDS: THERAHONEY GEL 42.5 GM TP SCH (12:19)
--- NOTE | 2021-12-16 13:00 | NUR ---
DRESSING ON BILATERAL LOWER EXTREMITIES WITH DRESSING AND INTACT, PATIENT WENT TO SURGERY S/P DEBRIDEMENT WILL CHECK DRESSING TMW.
--- NOTE | 2021-12-16 15:00 | NUR ---
PT HERE TO EVALUATE PATIENT. WILL CONTINUE TO MONITOR.
[2021-12-16 16:00] VITALS: BP 113/53
--- NOTE | 2021-12-16 16:20 | NUR ---
PHYSICAL THERAPY CO-SIGN The Physical Therapy Progress Notes documented by Systems Support Officer have been reviewed. Reviewed/Co-Signed by: Irene Ríos Documentation Done by: LISE FORBES PTA Addendum: 12/16/21 at 1620 by Irene Ríos PT Amended: Links added.
--- NOTE | 2021-12-16 19:19 | NUR ---
REPORT GIVEN TO ENGINEERING LECTURER AT BEDSIDE FOR CONTINUITY OF CARE. PATIENT IN STABLE CONDITION.
--- NOTE | 2021-12-16 19:25 | NUR ---
RECEIVED REPORT FROM AM SHIFT FOR CONTINUITY OF CARE. PT ALERT AND ORIENTED X 2. PT ON ROOM AIR.PT HAS IV ON RIGHT HAND G 24 AND L AC G 20. PT HAS WOUND ON BLE S/P DEBRIDMENT. DRESSING DRY AND INTACT. ALL PRECAUTIONS IN PLACE. WILL CONTINUE TO MONITOR.
[2021-12-16 20:00] VITALS: BP 125/54
--- NOTE | 2021-12-16 21:40 | NUR ---
DUE MEDICATIONS GIVEN. PT TOLERATED WELL. NO DISTRESS NOTED. WILL CONTINUE TO MONITOR.
[2021-12-17] VITALS (7 sets, daily range): BP systolic 101–122; BP diastolic 46–55
--- NOTE | 2021-12-17 | NUR ---
PT ASLEEP. VISIBLE CHEST RISE AND FALL NOTED. ALL PRECAUTIONS IN PLACE. WILL CONTINUE TO MONITOR
[2021-12-17] MEDS: GAUZE TP SCH ×2 (01:00→13:01)
[2021-12-17] MEDS: HYDRAGUARD CREAM TP SCH ×2 (01:00→13:01)
--- NOTE | 2021-12-17 02:00 | NUR ---
PT ASLEEP. VISIBLE CHEST RISE AND FALL NOTED. ALL PRECAUTIONS IN PLACE. WILL CONTINUE TO MONITOR
--- NOTE | 2021-12-17 04:45 | NUR ---
DUE MEDICATIONS GIVEN. PT TOLERATED WELL. NO DISTRESS NOTED. WILL CONTINUE TO MONITOR.
[2021-12-17] MEDS: PIPERACILLIN/TAZOBACTAM 2.25 GM in DEXTROSE 5% 50 ML IV SCH ×3 (05:06→21:17)
--- NOTE | 2021-12-17 06:30 | NUR ---
PT BLOOD SUGAR WAS 168.INSULIN COVERAGE GIVEN. PT TOLERATED WELL.NO DISTRESS NOTED
--- NOTE | 2021-12-17 06:47 | NUR ---
PT STABLE. NO ACUTE EVENTS THROUGHOUT THE NIGHT. NO S/SX OF DISTRESS NOTED. ALL NEEDS MET. ALL PRECAUTIONS IN PLACE. WILL ENDORSE TO AM SHIFT NURSE.
[2021-12-17] MEDS: INSULIN LISPRO SLIDING SCALE 100 UNITS/ML VIAL SUBQ PRN (06:50)
[2021-12-17] MEDS: BLOOD GLUCOSE MONITORING 1 DEV DEV FS SCH ×4 (06:50→21:11)
--- NOTE | 2021-12-17 08:00 | NUR ---
RECEIVED REPORT FROM SHOT COAT TENDER FOR CONTINUITY OF CARE. PATIENT ALERT AWAKE ORIENTED X2, NOT IN ANY ACUTE DISTRESS NOTED. WITH IV ON THE RIGHT HAND INTACT. DENIES PAIN AT THIS TIME. ON MONITOR SHOWS SR WITH 1AVB NOTED. WITH WOUND ON BILATERAL LOWER LEG DRESSING DRY AND INTACT. CALL LIGHT WITHIN REACH. WILL CONTINUE TO MONITOR.
[2021-12-17] MEDS: ASPIRIN 81 MG TAB.CHEW PO SCH (08:48)
[2021-12-17] MEDS: ATORVASTATIN 20 MG TAB PO SCH (08:48)
[2021-12-17 08:49] LABS: BASOPHILS % (AUTO) 0.3 % (0.0-2.0); EOSINOPHILS # (AUTO) 0.1 K/uL (0-0.4); EOSINOPHILS % (AUTO) 1.1 % (0.0-4.0); HEMATOCRIT 28.3 % (36-52); HEMOGLOBIN 9.5 g/dL (12.0-18.0); LYMPHOCYTES # (AUTO) 0.8 K/uL (2.0-11.5); MEAN CORPUSCULAR HEMOGLOBIN 30 pg (27-31); MEAN CORPUSCULAR HGB CONC 34 g/dL (33-37); MEAN CORPUSCULAR VOLUME 89.3 fL (80-94); MONOCYTES # (AUTO) 0.6 K/uL (0.8-1.0); MONOCYTES % (AUTO) 7.7 % (1.7-9.3); NEUTROPHILS # (AUTO) 6.4 K/uL (1.8-7.7); NEUTROPHILS % (AUTO) 80.9 % (42.2-75.2); PLATELET COUNT (AUTO) 229 K/uL (140-450); RED BLOOD CELL COUNT(AUTO) 3.17 MIL/uL (4.20-6.10); RED CELL DISTRIBUTION WIDTH 13.7 % (11.6-13.7)
[2021-12-17] MEDS: METOPROLOL 25 MG TAB PO SCH ×2 (08:49→21:18)
[2021-12-17 09:04] LABS: CARBON DIOXIDE 25.1 mmol/L (21-32); CHLORIDE 105 mmol/L (98-107); CREATININE 1.4 mg/dL (0.6-1.3); GLUCOSE 64 mg/dL (74-106); POTASSIUM 4.1 mmol/L (3.5-5.1); SODIUM SERUM 137 mmol/L (136-145); UREA NITROGEN, BLOOD 27 mg/dL (7-18)
--- NOTE | 2021-12-17 09:30 | NUR ---
YELENAO TROUGH 21, CALLED PHARMACY AND THEY WILL ADJUST THE DOSE. DUE MEDS GIVEN.
[2021-12-17] MEDS: VANCOMYCIN HCL 750 MG in DEXTROSE 5% 250 ML IV SCH (12:03)
[2021-12-17] MEDS: THERAHONEY GEL 42.5 GM TP SCH (13:01)
--- NOTE | 2021-12-17 14:00 | NUR ---
PATIENT RESTING IN BED. WILL CONTINUE TO MONITOR.
--- NOTE | 2021-12-17 19:38 | NUR ---
REPORT GIVEN TO THE INSOLE ROUNDER FOR CONTINUITY OF CARE. PATIENT IN STABLE CONDITION.
[2021-12-17] MEDS ORDERED: ATOR20TA40 PO (21:36)
[2021-12-17] MEDS ORDERED: METO25TA PO (21:36)
[2021-12-17] MEDS ORDERED: ASPI81CT95 PO (21:36)
--- NOTE | 2021-12-17 22:10 | NUR ---
REPORT GIVEN TO [facility] [place].
--- NOTE | 2021-12-17 22:30 | NUR ---
WOUND PICTURES TAKEN, IV LINE DISCONTINUED WITH CANNULA INTACT, DISCHARGE PAPERS GIVEN TO TRANSPORT PERSONNEL, PT DISCHARGE IN STABLE CONDITION, ALL BELONGINGS SENT WITH PT.
--- NOTE | 2021-12-17 22:40 | NUR ---
GOT A CALL FROM TRANSPORT STATED THAT PT GOT TESTED FOR MOISE WHEN HE ARRIVED AT [facility] AND HE TURNED BACK POSITIVE FOR COVID, FACILITY REFUSING TO ACCEPT PT, TOLD TO BRING BACK PT TO ROOM 117, MINNIE YUN SUP MADE AWARE.
[2021-12-18] VITALS: BP 122/65
--- NOTE | 2021-12-18 | NUR ---
RECEIVED PT AAOX2 ABLE TO MAKE NEEDS KNOWN, DENIES ANY PAIN, NO SOB NOTED, SAT-95% ON ROOM AIR, DRESSING TO BLE DRY AND INTACT, MAINTAINED ON DROPLET PRECAUTION FOR COVID POSITIVE, SAFETY MEASURES IN PLACE, CALL LIGHT WITHIN REACH.
[2021-12-18] MEDS: HYDRAGUARD CREAM TP SCH ×2 (01:05→12:11)
[2021-12-18] MEDS: GAUZE TP SCH ×2 (01:05→12:11)
--- NOTE | 2021-12-18 02:00 | NUR ---
SEEN PT SLEEPING, VISIBLE CHEST RISE AND FALL, NO DISTRESS NOTED, MONITORED CLOSELY.
[2021-12-18 04:00] VITALS: BP 127/60
[2021-12-18] MEDS: PIPERACILLIN/TAZOBACTAM 2.25 GM in DEXTROSE 5% 50 ML IV SCH (04:15)
[2021-12-18] MEDS: VANCOMYCIN HCL 750 MG in DEXTROSE 5% 250 ML IV SCH (05:24)
--- NOTE | 2021-12-18 05:30 | NUR ---
PT INCONTINENT OF URINE, BM WITH MODERATE SOFT STOOL, PERINEAL CARE DONE, LEFT BUTTOCKS DRESSING SOILED, NEW OPTIFOAM DRESSING APPLIED, REPOSITIONED FOR COMFORT AND UPLOAD PRESSURE AREAS, VANCOMYCIN IVPB ADMINISTERED, DENIES PAIN AT THIS TIME, CONTINUE TO MONITOR CLOSELY.
[2021-12-18] MEDS: BLOOD GLUCOSE MONITORING 1 DEV DEV FS SCH ×4 (06:50→21:36)
--- NOTE | 2021-12-18 07:15 | NUR ---
RECEIVED BEDSIDE REPORT FROM HEEL BUILDER MACHINE NURSE FOR CONTINUITY OF CARE. PT IS ASLEEP. CHEST RISE AND FALL SYMMETRICAL. ON RA WITH BREATHING UNLABORED. COVID POSITIVE. INCONTINENT OF THE BOWEL AND BLADDER WITH DRY DIAPER IN PLACE. MULTIPLE WOUNDS ON BILATERAL LE, BUTTOCKS, AND FEET BILAT. GEN. WEAKNESS. IV IS IN THE LEFT AC 22 GAUGE TKO. PT IS STABLE. PLAN OF CARE DISCUSSED. NURSING OUT OF RATIO.
--- NOTE | 2021-12-18 07:25 | NUR ---
PT SLEEPING, NO SIGNS OF DISTRESS, REPORT GIVEN TO MARYCHUY KAY FOR CONTINUITY OF CARE.
[2021-12-18 08:00] VITALS: BP 143/62
[2021-12-18] MEDS: ATORVASTATIN 20 MG TAB PO SCH (09:43)
[2021-12-18] MEDS: ASPIRIN 81 MG TAB.CHEW PO SCH (09:43)
[2021-12-18] MEDS: METOPROLOL 25 MG TAB PO SCH ×2 (09:44→21:30)
[2021-12-18] MEDS: HYDROCOLLOID DRESSING TP SCH (09:45)
[2021-12-18] MEDS: NON ADHERENT DRESSING TP SCH (09:45)
--- NOTE | 2021-12-18 11:00 | NUR ---
RT UNABLE TO GET EKG READING. PT WAS REFUSING AND COMBATIVE. WILL ATTEMPT AGAIN IN A COUPLE MIN. RT TO RETURN TO UNIT SHORTLY.
--- NOTE | 2021-12-18 12:00 | NUR ---
PT IS AWAKE AND ALERT. CONFUSED AT TIMES. ON RA WITH BREATHING UNLABORED. PT DENIED PAIN. CALL LIGHT WITHIN REACH. BED IN THE LOWEST POSITION.
[2021-12-18] MEDS: THERAHONEY GEL 42.5 GM TP SCH (12:11)
--- NOTE | 2021-12-18 12:24 | NUR ---
WOUND CARE RE-EVALUATION NOTE -INCONTINENT ASSOCIATE DERMATITIS (IAD) TO: B/L GROINS, TO SCROTAL, SKIN RED AND MOIST -S/P DEBRIDEMENT CELLULITIS LLE FROM KNEE DOWN TO DORSAL FOOT ANTERIOR AND POSTERIOR WITH FULL THICKNESS SKIN LOSS, LARGEST 11X6X0.2 CM WOUND BED 100% RED GRANULATING TISSUE, SMALL AMOUNT SEROUS DRAINAGE, NO ODOR, TIKI WOUND SKIN SLIGHTLY RED, MOIST, PEELING SCALY SKIN, PAIN 2/10 -S/P DEBRIDEMENT CELLULITIS INFECTED WOUND RLE FROM KNEE DOWN TO LATERAL TIKI-ANKLE FROM ANTERIOR AND POSTERIOR WITH FULL THICKNESS SKIN LOSS, LARGEST MEASUREMENT 12X7X0.2CM, WOUND BED 100% RED GRANULATING TISSUE, SMALL AMOUNT SEROUS DRAINAGE, NO ODOR, TIKI WOUND SKIN INFECTED SLOUGH TISSUE REMOVED, WOUND BED 100% RED GRANULATING TISSUE, MOIST, NO ODOR, PAIN 2/10 -DIABETIC ULCER TO RIGHT HALLUX PLANTAR AREA 1X1CM BROWN STABLE ESCHAR TISSUE -DIABETIC ULCER TO RIGHT HEEL 3X4X0.2CM WOUND BED 50% RED GRANULATING TISSUE AND 50 % BROWN TISSUE, MOIST, TIKI-WOUND SKIN MOIST, NO ODOR, PAIN 2/10 -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 -CLEANSE LEFT BUTTOCK AND RIGHT HEEL WOUNDS WITH NS, PAT DRY, APPLY THERAHONEY GEL TO WOUND BED AND COVER WITH FOAM DRESSING QD AND PRN IF SOILING -APPLY THIN LAYER OF HYDROGUARD TO R/L GROINS EXTENDED TO SCROTAL AREA BID AND PRN IF SOILING - CLEANSE LEFT AND RIGHT LOWER LEG WITH WOUNDS WITH NS, PAT DRY AND APPLY THERAHONEY GEL WITH OIL EMULSION DRESSING COVER WITH ABD PAD, WRAP WITH KERLIX ROLL DAILY AND PRN IF SOILING -PAINT DIABETIC ULCER TO RIGHT HALLUX PLANTAR AREA WITH BETADINE SWAP BID AND SYSTEMS MGR -APPLY HEEL PROTECTORS TO BOTH HEELS AT ALL TIMES -OFFLOAD BILATERAL HEELS BY PLACING PILLOWS UNDER CALVES UNLESS OTHERWISE CONTRAINDICATED -PRESSURE REDISTRIBUTION SURFACE THERAPY -TURN AND REPOSITION Q2H, OFFLOAD SACRALCOCCYX AND BUTTOCKS BY TURNING RIGHT AND LEFT -CONTINUE TO FOLLOW RD RECOMMENDATIONS
[2021-12-18 16:00] VITALS: BP 114/57
--- NOTE | 2021-12-18 19:02 | NUR ---
PT WAS STABLE THROUGHOUT SHIFT. NO FEVER OR RESP. DISTRESS. PT IS ON RA WITH BREATHING UNLABORED. NO COUGHING NOTED. PT DENIED PAIN THROUGHOUT SHIFT. BS IS STABLE. WILL CONTINUE TO MONITOR TILL END OF SHIFT. INFORMATION PROVIDED TO FROM [facility] PER PT VERBAL CONSENT.
--- NOTE | 2021-12-18 19:15 | NUR ---
ENDORSED PT TO RESEARCH ANALYST NURSE FOR CONTINUITY OF CARE. PT IS STABLE. PLAN OF CARE DISCUSSED.
--- NOTE | 2021-12-18 19:16 | NUR ---
RECEIVED PATIENT REPORT FROM AM SHIFT NURSE FOR CONTINUITY OF CARE. PATIENT RESTING COMFORTABLY. VISIBLE CHEST RISE AND FALL SYMMETRICAL. ON RA. PATIENT IS COVID POSITIVE. MULTIPLE WOUNDS ON BILATERAL LOWER EXTREMITIES, BUTTOCKS, AND FEET BILAT. GENERAL WEAKNESS. IV IN THE LEFT AC 22 GAUGE TKO. ALL SAFETY MEASURES IN PLACE. CALL LIGHT WITHIN REACH. WILL CONTINUE WITH CURRENT PLAN OF CARE.
--- NOTE | 2021-12-18 21:35 | NUR ---
ADMINISTERED SCHEDULE MEDICATIONS PER MD ORDERED. ELAINA WELL. NO ASE NOTED. ALL SAFETY MEASURES IN PLACE. CALL LIGHT WITHIN REACH . WILL CONTINUE TO MONITOR.
[2021-12-18] MEDS: INSULIN LISPRO SLIDING SCALE 100 UNITS/ML VIAL SUBQ PRN (21:38)
[2021-12-19] VITALS: BP 126/58
[2021-12-19] MEDS: GAUZE TP SCH ×2 (01:00→12:45)
[2021-12-19] MEDS: HYDRAGUARD CREAM TP SCH ×2 (01:00→12:45)
--- NOTE | 2021-12-19 03:40 | NUR ---
CHECKED ON PATIENT. PATIENT ASLEEP. VISIBLE CHEST RISING AND FALLING. BREATHING EVEN AND UNLABORED. NO SOB NOTED. ALL SAFETY MEASURES IN PLACE. CALL LIGHT WITHIN REACH. WILL CONTINUE TO MONITOR.
[2021-12-19] MEDS: BLOOD GLUCOSE MONITORING 1 DEV DEV FS SCH ×4 (06:58→21:04)
--- NOTE | 2021-12-19 07:35 | NUR ---
ENDORSED PATIENT REPORT TO AM SHIFT NURSE FOR CONTINUITY OF CARE. PATIENT IS STABLE.
--- NOTE | 2021-12-19 07:36 | NUR ---
RECEIVED REPORT FROM DIGESTER CAPPER NURSE FOR CONTINUITY OF CARE. PT IN BED RESTING AT THIS TIME. RESPIRATIONS ARE EVEN AND UNLABORED. NO SIGNS OF DISTRESS NOTED. NO COMPLAINTS OF PAIN OR DISCOMFORT. CALL LIGHT WITHIN REACH. ALL SAFETY MEASURES IN PLACE. WILL CONTINUE TO MONITOR.
[2021-12-19 08:00] VITALS: BP 131/64
[2021-12-19] MEDS: ASPIRIN 81 MG TAB.CHEW PO SCH (08:49)
[2021-12-19] MEDS: ATORVASTATIN 20 MG TAB PO SCH (08:49)
[2021-12-19] MEDS: METOPROLOL 25 MG TAB PO SCH (08:50)
--- NOTE | 2021-12-19 09:02 | NUR ---
ADMINISTERED ALL SCHEDULED MEDICATIONS. EDUCATED PT ON MEDS ADMINISTERED. ANSWERED ALL QUESTIONS. WILL CONTINUE TO MONITOR.
[2021-12-19] MEDS: THERAHONEY GEL 42.5 GM TP SCH (12:46)
--- NOTE | 2021-12-19 13:00 | NUR ---
CHANGED PT WOUND DRESSINGS. PT TOLERATED WELL. WILL CONTINUE TO MONITOR.
--- NOTE | 2021-12-19 14:04 | NUR ---
PHYSICAL THERAPY CO-SIGN The Physical Therapy Progress Notes documented by Tire Duster have been reviewed. Reviewed/Co-Signed by: Irene Ríos Documentation Done by: LISE FORBES PTA Addendum: 12/19/21 at 1405 by Irene Ríos PT Amended: Links added.
--- NOTE | 2021-12-19 15:57 | NUR ---
12/19/21 RD FOLLOW UP COMPLETED PLEASE REFER TO NUTRITION ASSESSMENT UNDER CARE ACTIVITY FOR ESTIMATED NUTRITIONAL NEEDS. 1. CONTINUE CARDIAC DIET TOLERATED. 2. RECOMMEND ENSURE 1XDAY AND SIERRA BID PER PROTOCOL 3. RD WILL F/U 7 DAYS; LOW RISK (DOWNGRADED D/T PT EATING > 75%) [address]
[2021-12-19 16:00] VITALS: BP 145/48
--- NOTE | 2021-12-19 16:23 | NUR ---
ASSISTED WITH CHANGING AND REPOSITIONING PT. PT TOLERATED WELL. WILL CONTINUE TO MONITOR.
--- NOTE | 2021-12-19 19:26 | NUR ---
ENDORSED PT TO PAYING TELLER NURSE FOR CONTINUITY OF CARE. PT IS STABLE AT THIS TIME.
[2021-12-20] VITALS: BP 127/53
[2021-12-20] MEDS: HYDRAGUARD CREAM TP SCH (01:00)
[2021-12-20] MEDS: GAUZE TP SCH (01:00)
[2021-12-20] MEDS: BLOOD GLUCOSE MONITORING 1 DEV DEV FS SCH ×4 (06:26→21:03)
--- NOTE | 2021-12-20 07:22 | NUR ---
RECEIVED REPORT FROM SENIOR ONLINE MARKETING MANAGER NURSE FOR CONTINUITY OF CARE. PT RESPIRATIONS ARE EVEN AND UNLABORED. NO SIGNS OF DISTRESS NOTED. NO COMPLAINTS OF PAIN OR DISCOMFORT NOTED. CALL LIGHT WITHIN REACH. ALL SAFETY MEASURES IN PLACE. WILL CONTINUE TO MONITOR.
[2021-12-20 08:00] VITALS: BP 145/59
[2021-12-20] MEDS: ASPIRIN 81 MG TAB.CHEW PO SCH (08:41)
[2021-12-20] MEDS: lisinopriL 5 MG TAB PO SCH (08:42)
[2021-12-20] MEDS: HYDROCOLLOID DRESSING TP SCH (08:42)
[2021-12-20] MEDS: ATORVASTATIN 20 MG TAB PO SCH (08:42)
[2021-12-20] MEDS: NON ADHERENT DRESSING TP SCH (08:43)
--- NOTE | 2021-12-20 08:43 | NUR ---
ADMINISTERED ALL SCHEDULED MEDICATIONS. EDUCATED PT REGARDING MEDS ADMINISTERED. PT VERBALIZED UNDERSTANDING. PT TOLERATED WELL. CALL LIGHT WITHIN REACH. ALL SAFETY MEASURES IN PLACE. WILL CONTINUE TO MONITOR.
[2021-12-20] MEDS ORDERED: METOPROLOL SUCCINATE 50 MG TABER PO SCH (09:00)
--- NOTE | 2021-12-20 11:13 | NUR ---
PT BLOOD GLUCOSE WAS 98. NO INSULIN COVERAGE NEEDED. WILL CONTINUE TO MONITOR.
[2021-12-20] MEDS: THERAHONEY GEL 42.5 GM TP SCH (13:02)
--- NOTE | 2021-12-20 15:23 | NUR ---
ASSISTED WITH CHANGING AND REPOSITIONING PT. PT TOLERATED WELL. PT VERBALIZED "I AM TIRED OF BEING HERE I WANNA GO HOME". EDUCATED PT REGARDING NEED OF HOSPITALIZATION. PT VERBALIZED "OK". WILL CONTINUE TO MONITOR.
--- NOTE | 2021-12-20 15:48 | NUR ---
PHYSICAL THERAPY CO-SIGN The Physical Therapy Progress Notes documented by Tapping Machine Operator have been reviewed. Reviewed/Co-Signed by: Irene Ríos Documentation Done by: LISE FORBES PTA Addendum: 12/20/21 at 1548 by Irene Ríos PT Amended: Links added.
[2021-12-20 16:00] VITALS: BP 121/62
--- NOTE | 2021-12-20 16:22 | NUR ---
ORDER TO PERFORM MOISE RAPID TEST. ORDERS CARRIED OUT.
[2021-12-20] MEDS ORDERED: HEPA500056 SUBQ (17:16)
[2021-12-20] MEDS ORDERED: HUMSLIDE SUBQ (17:16)
[2021-12-20] MEDS ORDERED: ACET-1182 PO (17:16)
[2021-12-20] MEDS ORDERED: LISI5TAB24 PO (17:16)
[2021-12-20] MEDS ORDERED: ACET-9525 PO (17:16)
[2021-12-20] MEDS ORDERED: ONDA2SOL45 IVP (17:16)
--- NOTE | 2021-12-20 19:00 | NUR ---
LAB CALLED TO GIVE RESULTS OF MOISE RAPID TEST. PER LAB, PT RAPID CAME BACK POSITIVE.
--- NOTE | 2021-12-20 19:11 | NUR ---
ENDORSED PT TO ADMISSIONS RN NURSE FOR CONTINUITY OF CARE. RESPIRATIONS ARE EVEN AND UNLABORED. PT IS STABLE.
--- NOTE | 2021-12-20 19:20 | NUR ---
RECEIVED PT REPORT FROM AM NURSE FOR CONTINUITY OF CARE. PT AWAKE .ALERT SITTING UP IN BED. EATING DINNER. POOR APPETITE. ENCOURAGED PT TO DRINK ENSURE. ALL SAFETY MEASURES IN PLACE. WILL CONTINUE TO MONITOR.
--- NOTE | 2021-12-20 21:00 | NUR ---
PT PD=452 AFTER DRINKING JEVNUE PROTEIN DRINK. COVERED WITH 2UNITS HUMALOG INSULIN PER SLIDING SCALE. ALL NEEDS MET NO C/O PAIN OR DISTRESS. CONTINUE TO OBSERVE.
[2021-12-20] MEDS: INSULIN LISPRO SLIDING SCALE 100 UNITS/ML VIAL SUBQ PRN (21:04)
--- NOTE | 2021-12-21 01:00 | NUR ---
WOUND CARE DONE TO BILATERAL LEGS AND R BUTTOCK THERA HONEY APPLIED. ENCOURAGED PT TO DRINK ALL JEVNUE PROTEIN DRINKS INCLUDED WITH MEALS. THEY WILL HELP WITH THE WOUNDCARE REGIMEN.
[2021-12-21 03:05] VITALS: BP 124/76
[2021-12-21] MEDS: BLOOD GLUCOSE MONITORING 1 DEV DEV FS SCH ×4 (06:00→21:31)
--- NOTE | 2021-12-21 07:19 | NUR ---
ENDORSED PT REPORT TO DAY SHIFT FOR CONTINUITY OF CARE.
--- NOTE | 2021-12-21 07:20 | NUR ---
RECEIVED ENDORSEMENT FROM DIGITAL ASSET MANAGER NURSE FOR CONTINUITY OF CARE.
[2021-12-21 08:00] VITALS: BP 120/85
--- NOTE | 2021-12-21 08:00 | NUR ---
Patient's Plan of Care was discussed and reviewed with TECHNOLOGY SPECIALIST: RAFAL PAGE, ELENA
[2021-12-21] MEDS: ASPIRIN 81 MG TAB.CHEW PO SCH (09:40)
[2021-12-21] MEDS: ATORVASTATIN 20 MG TAB PO SCH (09:40)
[2021-12-21] MEDS: METOPROLOL SUCCINATE 50 MG TABER PO SCH (09:41)
[2021-12-21] MEDS: lisinopriL 5 MG TAB PO SCH (09:41)
--- NOTE | 2021-12-21 09:54 | NUR ---
GIVEN ALL DUE MEDICATION AND NOTED WITH TEMP. OF 101.2 COOLING MEASURE AND TYLENOL GIVEN.
--- NOTE | 2021-12-21 10:51 | NUR ---
TEMPERATURE RECHECKED AND ITS 97.8. PT REFUSED TO EAT BREAKFAST BUT DRINK ENSURE OFFERED MORE FLUID. ALL SAFETY MEASURE IN PLACE.
--- NOTE | 2021-12-21 12:00 | NUR ---
BLOOD SUGAR CHECKED AND WITH READING OF 107 NO COVERAGE GIVEN ENCOURAGED TO EAT FOR LUNCH. ALL SAFETY MEASURE IN PLACE.
--- NOTE | 2021-12-21 13:00 | NUR ---
ASSISTED TO EAT LUNCH BUT ONLY TOLERATED JELLO AND ENSURE.
[2021-12-21] MEDS: THERAHONEY GEL 42.5 GM TP SCH (13:24)
--- NOTE | 2021-12-21 14:00 | NUR ---
TREATMENT DONE ON LEG AND SACROCOCCYX TOLERATED WELL. KEEP CLEAN AND COMFORTABLE. NO FEVER NOTED AT THIS TIME.
[2021-12-21 14:29] LABS: BASOPHILS % (AUTO) 0.5 % (0.0-2.0); EOSINOPHILS % (AUTO) 0.3 % (0.0-4.0); HEMATOCRIT 29.1 % (36-52); HEMOGLOBIN 9.7 g/dL (12.0-18.0); LYMPHOCYTES # (AUTO) 0.6 K/uL (2.0-11.5); MEAN CORPUSCULAR HEMOGLOBIN 30 pg (27-31); MEAN CORPUSCULAR HGB CONC 33 g/dL (33-37); MEAN CORPUSCULAR VOLUME 89.3 fL (80-94); MONOCYTES # (AUTO) 0.3 K/uL (0.8-1.0); MONOCYTES % (AUTO) 4.9 % (1.7-9.3); NEUTROPHILS # (AUTO) 6.2 K/uL (1.8-7.7); NEUTROPHILS % (AUTO) 86.3 % (42.2-75.2); PLATELET COUNT (AUTO) 263 K/uL (140-450); RED BLOOD CELL COUNT(AUTO) 3.26 MIL/uL (4.20-6.10); RED CELL DISTRIBUTION WIDTH 13.9 % (11.6-13.7); WHITE BLOOD COUNT (AUTO) 7.1 K/uL (4.8-10.8)
[2021-12-21 15:00] LABS: ANION GAP 11.7 (8-16); CHLORIDE 105 mmol/L (98-107); CREATININE 1.7 mg/dL (0.6-1.3); GLUCOSE 115 mg/dL (74-106); POTASSIUM 3.7 mmol/L (3.5-5.1); SODIUM SERUM 139 mmol/L (136-145); UREA NITROGEN, BLOOD 31 mg/dL (7-18)
[2021-12-21 16:00] VITALS: BP 122/86
--- NOTE | 2021-12-21 17:00 | NUR ---
BLOOD SUGAR CHECK NO COVERAGE NOTED.
--- NOTE | 2021-12-21 19:00 | NUR ---
PT ON STABLE CONDITION.
--- NOTE | 2021-12-21 19:25 | NUR ---
GAVE REPORT TO SUPERVISOR LANDSCAPE NURSE FOR CONTINUITY OF CARE.
--- NOTE | 2021-12-21 19:26 | NUR ---
RECEIVED REPORT FROM MORNING SHIFT NURSE FOR CONTINUITY OF CARE. PATIENT IS STABLE IN BED. A&OX2. VERBALLY RESPONSIVE AND ABLE TO COMMUNICATE NEEDS. DENIES PAIN. ON ROOM AIR. RESPIRATIONS EVEN AND UNLABORED WITH NO APPARENT S/SX OF ACUTE DISTRESS. IV SITE LAC 22G IS PATENT/INTACT TKO. PLAN OF CARE AND WHITE COMMUNICATION BOARD UPDATED. BED IN LOW/LOCKED POSITION. CALL LIGHT WITHIN REACH. WILL CONTINUE TO MONITOR.
--- NOTE | 2021-12-21 20:00 | NUR ---
REVIEWED PLAN OF CARE WITH KRISHNA REYES LVN AND WILL CONTINUE WITH PLAN OF CARE.
--- NOTE | 2021-12-21 21:15 | NUR ---
ADMINISTERED SCHEDULED MEDICATIONS PER MD ORDER. CHECKED BLOOD SUGAR AND NO COVERAGE NEEDED PER MD ORDER. TOLERATED WELL. NO ADVERSE REACTION NOTED. DENIES PAIN. RESPIRATIONS EVEN AND UNLABORED WITH NO APPARENT S/SX OF ACUTE DISTRESS. SNACKS PROVIDED. WHITE COMMUNICATION BOARD UPDATED. ALL SAFETY MEASURES IN PLACE. CALL LIGHT WITHIN REACH. WILL CONTINUE TO MONITOR.
--- NOTE | 2021-12-21 23:15 | NUR ---
CHECKED PATIENT. STABLE AND ASLEEP. CHEST IS RISING AND FALLING EVENLY. RESPIRATIONS EVEN AND UNLABORED WITH NO APPARENT S/SX OF ACUTE DISTRESS. WHITE COMMUNICATION BOARD UPDATED. ALL SAFETY MEASURES IN PLACE. CALL LIGHT WITHIN REACH. WILL CONTINUE TO MONITOR.
--- NOTE | 2021-12-22 01:15 | NUR ---
ROUNDED ON PATIENT. STABLE AND ASLEEP. CHEST IS RISING AND FALLING EVENLY. RESPIRATIONS EVEN AND UNLABORED WITH NO APPARENT S/SX OF ACUTE DISTRESS. WHITE COMMUNICATION BOARD UPDATED. ALL SAFETY MEASURES IN PLACE. CALL LIGHT WITHIN REACH. WILL CONTINUE TO MONITOR.
[2021-12-22 04:00] VITALS: BP 118/70
[2021-12-22] MEDS: BLOOD GLUCOSE MONITORING 1 DEV DEV FS SCH ×4 (06:45→21:24)
--- NOTE | 2021-12-22 07:04 | NUR ---
ENDORSED PATIENT TO MORNING SHIFT NURSE FOR CONTINUITY OF CARE. PATIENT IS STABLE.
--- NOTE | 2021-12-22 07:19 | NUR ---
RECEIVED ENDORSEMENT FROM MOUNTER SOUSAPHONES NURSE FOR CONTINUITY OF CARE.
--- NOTE | 2021-12-22 08:00 | NUR ---
Patient's Plan of Care was discussed and reviewed with UNIT AIDE: RAFAL PAGE
[2021-12-22] MEDS: NACL 0.9% 1,000 ML IV SCH ×2 (08:58→18:31)
[2021-12-22] MEDS: ASPIRIN 81 MG TAB.CHEW PO SCH (08:59)
[2021-12-22] MEDS: METOPROLOL SUCCINATE 50 MG TABER PO SCH (09:00)
[2021-12-22] MEDS: ATORVASTATIN 20 MG TAB PO SCH (09:00)
[2021-12-22] MEDS: lisinopriL 5 MG TAB PO SCH (09:05)
--- NOTE | 2021-12-22 09:15 | NUR ---
GIVEN ALL DUE MEDICATION TOLERATED WELL. ASSISTED WITH HIS BREAKFAST BUT ONLY DRINK SIERRA AND FEW SPOONFUL OF YOGURT. IV HYDRATION STARTED AT 100CC/HOUR
[2021-12-22 12:00] VITALS: BP 119/54
--- NOTE | 2021-12-22 12:00 | NUR ---
BLOOD SUGAR CHECK NO COVERAGE NEEDED. ENCOURAGED TO EAT MORE FOOD. ON IV HYDRATION OF NORMAL SALINE AT 100 CC/HOUR NO FLUID OVER LOAD NOTED. PT NOTED WITH OCCASIONAL NON PRODUCTIVE COUGH , NO FEVER OR CHILLS.
[2021-12-22 12:34] LABS: BASOPHILS # (AUTO) 0.1 K/uL (0.00-0.22); BASOPHILS % (AUTO) 0.5 % (0.0-2.0); EOSINOPHILS # (AUTO) 0.1 K/uL (0-0.4); EOSINOPHILS % (AUTO) 1.3 % (0.0-4.0); HEMOGLOBIN 10.3 g/dL (12.0-18.0); LYMPHOCYTES # (AUTO) 0.7 K/uL (2.0-11.5); LYMPHOCYTES % (AUTO) 6.1 % (20.5-51.1); MEAN CORPUSCULAR HEMOGLOBIN 30 pg (27-31); MEAN CORPUSCULAR HGB CONC 33 g/dL (33-37); MONOCYTES # (AUTO) 0.4 K/uL (0.8-1.0); MONOCYTES % (AUTO) 3.9 % (1.7-9.3); NEUTROPHILS # (AUTO) 9.7 K/uL (1.8-7.7); NEUTROPHILS % (AUTO) 88.2 % (42.2-75.2); PLATELET COUNT (AUTO) 376 K/uL (140-450); RED BLOOD CELL COUNT(AUTO) 3.48 MIL/uL (4.20-6.10); RED CELL DISTRIBUTION WIDTH 14.4 % (11.6-13.7)
[2021-12-22 12:57] LABS: ANION GAP 12.6 (8-16); CARBON DIOXIDE 25.9 mmol/L (21-32); CHLORIDE 106 mmol/L (98-107); CREATININE 1.7 mg/dL (0.6-1.3); GLUCOSE 120 mg/dL (74-106); POTASSIUM 4.5 mmol/L (3.5-5.1); SODIUM SERUM 140 mmol/L (136-145); UREA NITROGEN, BLOOD 39 mg/dL (7-18)
[2021-12-22] MEDS: THERAHONEY GEL 42.5 GM TP SCH (13:02)
--- NOTE | 2021-12-22 14:00 | NUR ---
CHANGE PT AND GIVEN SKIN CARE.TREATMENT DONE ON BOTH LEG AND BUTTOCKS TOLERATED WELL.
--- NOTE | 2021-12-22 16:47 | NUR ---
BLOOD SUGAR CHECK NO INSULIN COVERAGE NEEDED. PT ASLEEP NO DISTRESS. ALL SAFETY MEASURE IN PLACE. NO FLUID OVER LOAD NOTED.
--- NOTE | 2021-12-22 18:38 | NUR ---
PT ON BED RESTING NOT ON ANY DISTRESS. OFFERED JUICE BUT PT REFUSED.
--- NOTE | 2021-12-22 19:10 | NUR ---
ADMINISTERED SCHEDULED MEDICATIONS PER MD ORDER. CHECKED BLOOD SUGAR AND NO COVERAGE NEEDED PER MD ORDER. TOLERATED WELL. NO ADVERSE REACTION NOTED. DENIES PAIN. RESPIRATIONS EVEN AND UNLABORED WITH NO APPARENT S/SX OF ACUTE DISTRESS. SNACKS PROVIDED. WHITE COMMUNICATION BOARD UPDATED. ALL SAFETY MEASURES IN PLACE. CALL LIGHT WITHIN REACH. WILL CONTINUE TO MONITOR. Addendum: 12/22/21 at 2159 by Bk Valdes LVN WRONG TIME. CORRECT TIME: 2109
--- NOTE | 2021-12-22 19:17 | NUR ---
GIVE REPORT TO ROOM SERVICE FOOD SERVER NURSE FOR CONTINUITY OF CARE.
[2021-12-22 20:00] VITALS: BP 120/55
--- NOTE | 2021-12-23 03:10 | NUR ---
CHANGED PATIENT'S IVF BAG. PATIENT IS STABLE AND ASLEEP. CHEST IS RISING AND FALLING EVENLY. RESPIRATIONS EVEN AND UNLABORED WITH NO APPARENT S/SX OF ACUTE DISTRESS. WHITE COMMUNICATION BOARD UPDATED. ALL SAFETY MEASURES IN PLACE. CALL LIGHT WITHIN REACH. WILL CONTINUE TO MONITOR.
[2021-12-23 04:00] VITALS: BP 128/61
[2021-12-23] MEDS: NACL 0.9% 1,000 ML IV SCH ×2 (04:12→14:25)
--- NOTE | 2021-12-23 05:10 | NUR ---
CHANGED PATIENT'S WOUND DRESSING. TOLERATED WELL. DENIES PAIN. RESPIRATIONS EVEN AND UNLABORED WITH NO APPARENT S/SX OF ACUTE DISTRESS. ALL NEEDS MET. WHITE COMMUNICATION BOARD UPDATED. ALL SAFETY MEASURES IN PLACE. CALL LIGHT WITHIN REACH. WILL CONTINUE TO MONITOR.
[2021-12-23] MEDS: BLOOD GLUCOSE MONITORING 1 DEV DEV FS SCH ×4 (06:37→21:23)
--- NOTE | 2021-12-23 07:10 | NUR ---
ENDORSED PATIENT TO MORNING SHIFT NURSE FOR CONTINUITY OF CARE. PATIENT IS STABLE.
--- NOTE | 2021-12-23 07:11 | NUR ---
RECEIVED REPORT FROM MARKETING STRATEGIST NURSE FOR CONTINUITY OF CARE. PT BREATHING IS EVEN AND UNLABORED. NO SIGNS OF DISTRESS NOTED. NO SIGNS OF PAIN OR DISCOMFORT NOTED. CALL LIGHT WITHIN REACH. ALL SAFETY MEASURES IN PLACE. PT IS STABLE.
[2021-12-23 08:00] VITALS: BP 136/61
[2021-12-23] MEDS: ATORVASTATIN 20 MG TAB PO SCH (09:00)
[2021-12-23] MEDS: METOPROLOL SUCCINATE 50 MG TABER PO SCH (09:00)
[2021-12-23] MEDS: ASPIRIN 81 MG TAB.CHEW PO SCH (09:00)
--- NOTE | 2021-12-23 10:00 | NUR ---
IV CAME OUT. REPLACED IV WITH A 24G ON LEFT Forearm WELL.
[2021-12-23 11:04] LABS: BASOPHILS % (AUTO) 0.4 % (0.0-2.0); EOSINOPHILS % (AUTO) 0.3 % (0.0-4.0); HEMATOCRIT 30.2 % (36-52); HEMOGLOBIN 10.1 g/dL (12.0-18.0); LYMPHOCYTES # (AUTO) 0.7 K/uL (2.0-11.5); LYMPHOCYTES % (AUTO) 8.9 % (20.5-51.1); MEAN CORPUSCULAR HEMOGLOBIN 30 pg (27-31); MEAN CORPUSCULAR HGB CONC 33 g/dL (33-37); MEAN CORPUSCULAR VOLUME 88.8 fL (80-94); MONOCYTES # (AUTO) 0.3 K/uL (0.8-1.0); NEUTROPHILS # (AUTO) 6.6 K/uL (1.8-7.7); NEUTROPHILS % (AUTO) 86.4 % (42.2-75.2); PLATELET COUNT (AUTO) 357 K/uL (140-450); RED CELL DISTRIBUTION WIDTH 14.1 % (11.6-13.7); WHITE BLOOD COUNT (AUTO) 7.7 K/uL (4.8-10.8)
[2021-12-23 11:14] LABS: ANION GAP 13.7 (8-16); CARBON DIOXIDE 25.4 mmol/L (21-32); CHLORIDE 109 mmol/L (98-107); CREATININE 1.7 mg/dL (0.6-1.3); GLUCOSE 100 mg/dL (74-106); POTASSIUM 4.1 mmol/L (3.5-5.1); SODIUM SERUM 144 mmol/L (136-145); UREA NITROGEN, BLOOD 38 mg/dL (7-18)
--- NOTE | 2021-12-23 12:00 | NUR ---
BLOOD SUGAR IS 87, NO COVERAGE NEEDED. PT BREATHING IS EVEN AND UNLABORED. NO SIGNS OF DISTRESS NOTED. NO SIGNS OF PAIN OR DISCOMFORT NOTED. CALL LIGHT WITHIN REACH. ALL SAFETY MEASURES IN PLACE. PT IS STABLE.
--- NOTE | 2021-12-23 12:44 | NUR ---
Discharge Planning: CLINICAL PHARMACIST spoke with [employer] Machine Operator- Mimi ([phone]) Mimi states that they are still working on SNF bed for patient.
[2021-12-23] MEDS: THERAHONEY GEL 42.5 GM TP SCH (13:00)
--- NOTE | 2021-12-23 15:53 | NUR ---
PHYSICAL THERAPY CO-SIGN The Physical Therapy Progress Notes documented by Video Camera Operator have been reviewed. Reviewed/Co-Signed by: Irene Ríos Documentation Done by: LISE FORBES PTA Addendum: 12/23/21 at 1553 by Irene Ríos PT Amended: Links added.
--- NOTE | 2021-12-23 15:53 | NUR ---
PHYSICAL THERAPY CO-SIGN The Physical Therapy Progress Notes documented by Attendant [employer] have been reviewed. Reviewed/Co-Signed by: Irene Ríos Documentation Done by: LISE FORBES PTA Addendum: 12/23/21 at 1553 by Irene Ríos PT Amended: Links added.
[2021-12-23 16:00] VITALS: BP 110/59
--- NOTE | 2021-12-23 16:00 | NUR ---
BLOOD SUGAR IS 105, NO COVERAGE NEEDED. PT BREATHING IS EVEN AND UNLABORED. NO SIGNS OF DISTRESS NOTED. NO SIGNS OF PAIN OR DISCOMFORT NOTED. CALL LIGHT WITHIN REACH. ALL SAFETY MEASURES IN PLACE. PT IS STABLE.
--- NOTE | 2021-12-23 19:09 | NUR ---
ENDORSED PATIENT TO BLANKET WINDER OPERATOR NURSE FOR CONTINUITY OF CARE.
[2021-12-23 20:00] VITALS: BP 118/25
--- NOTE | 2021-12-23 20:00 | NUR ---
PATIENT'S PLAN OF CARE WAS DISCUSSED AND REVIEWED WITH ELENA REYES.
--- NOTE | 2021-12-23 23:10 | NUR ---
CLEANED PATIENT'S BEDSIDE TRAY. PATIENT IS STABLE AND AWAKE. DENIES PAIN. RESPIRATIONS EVEN AND UNLABORED WITH NO APPARENT S/SX OF ACUTE DISTRESS. WHITE COMMUNICATION BOARD UPDATED. ALL SAFETY MEASURES IN PLACE. CALL LIGHT WITHIN REACH. WILL CONTINUE TO MONITOR.
[2021-12-24] MEDS: NACL 0.9% 1,000 ML IV SCH ×3 (00:25→20:25)
[2021-12-24 04:00] VITALS: BP 124/71
--- NOTE | 2021-12-24 05:10 | NUR ---
CLEANED AND CHANGED PATIENT. TOLERATED WELL. DENIES PAIN. RESPIRATIONS EVEN AND UNLABORED WITH NO APPARENT S/SX OF ACUTE DISTRESS. ALL NEEDS MET. WHITE COMMUNICATION BOARD UPDATED. ALL SAFETY MEASURES IN PLACE. CALL LIGHT WITHIN REACH. WILL CONTINUE TO MONITOR.
[2021-12-24] MEDS: BLOOD GLUCOSE MONITORING 1 DEV DEV FS SCH ×4 (06:59→21:00)
--- NOTE | 2021-12-24 07:10 | NUR ---
ENDORSED PATIENT TO MORNING SHIFT FOR CONTINUITY OF CARE. PATIENT IS STABLE.
--- NOTE | 2021-12-24 07:11 | NUR ---
RECEIVED REPORT FROM MILIEU MANAGER NURSE FOR CONTINUITY OF CARE. PT BREATHING IS EVEN AND UNLABORED. NO SIGNS OF DISTRESS NOTED. NO SIGNS OF PAIN OR DISCOMFORT NOTED. CALL LIGHT WITHIN REACH. ALL SAFETY MEASURES IN PLACE. PT IS STABLE.
[2021-12-24 08:00] VITALS: BP 114/67
[2021-12-24] MEDS: ATORVASTATIN 20 MG TAB PO SCH (09:00)
[2021-12-24] MEDS: METOPROLOL SUCCINATE 50 MG TABER PO SCH (09:00)
[2021-12-24] MEDS: ASPIRIN 81 MG TAB.CHEW PO SCH (09:00)
[2021-12-24 11:04] LABS: ANION GAP 11.2 (8-16); CARBON DIOXIDE 27.1 mmol/L (21-32); CHLORIDE 107 mmol/L (98-107); CREATININE 1.5 mg/dL (0.6-1.3); GLUCOSE 106 mg/dL (74-106); POTASSIUM 4.3 mmol/L (3.5-5.1); SODIUM SERUM 141 mmol/L (136-145); UREA NITROGEN, BLOOD 35 mg/dL (7-18)
[2021-12-24 11:16] LABS: BASOPHILS # (AUTO) 0.1 K/uL (0.00-0.22); BASOPHILS % (AUTO) 0.9 % (0.0-2.0); EOSINOPHILS # (AUTO) 0.1 K/uL (0-0.4); EOSINOPHILS % (AUTO) 1.9 % (0.0-4.0); HEMATOCRIT 29.1 % (36-52); HEMOGLOBIN 9.7 g/dL (12.0-18.0); LYMPHOCYTES # (AUTO) 0.3 K/uL (2.0-11.5); LYMPHOCYTES % (AUTO) 5.4 % (20.5-51.1); MEAN CORPUSCULAR HEMOGLOBIN 30 pg (27-31); MEAN CORPUSCULAR HGB CONC 33 g/dL (33-37); MEAN CORPUSCULAR VOLUME 89.4 fL (80-94); MONOCYTES # (AUTO) 0.3 K/uL (0.8-1.0); MONOCYTES % (AUTO) 4.5 % (1.7-9.3); NEUTROPHILS # (AUTO) 5.1 K/uL (1.8-7.7); NEUTROPHILS % (AUTO) 87.3 % (42.2-75.2); PLATELET COUNT (AUTO) 332 K/uL (140-450); RED BLOOD CELL COUNT(AUTO) 3.26 MIL/uL (4.20-6.10); RED CELL DISTRIBUTION WIDTH 14.2 % (11.6-13.7); WHITE BLOOD COUNT (AUTO) 5.8 K/uL (4.8-10.8)
--- NOTE | 2021-12-24 12:00 | NUR ---
BLOOD SUGAR 132, NO COVER NEEDED. WOUND CARE PERFROMED. PT BREATHING IS EVEN AND UNLABORED. NO SIGNS OF DISTRESS NOTED. NO SIGNS OF PAIN OR DISCOMFORT NOTED. CALL LIGHT WITHIN REACH. ALL SAFETY MEASURES IN PLACE. PT IS STABLE.
[2021-12-24] MEDS: THERAHONEY GEL 42.5 GM TP SCH (13:01)
[2021-12-24 16:00] VITALS: BP 123/85
--- NOTE | 2021-12-24 16:00 | NUR ---
PT BREATHING IS EVEN AND UNLABORED. NO SIGNS OF DISTRESS NOTED. NO SIGNS OF PAIN OR DISCOMFORT NOTED. CALL LIGHT WITHIN REACH. ALL SAFETY MEASURES IN PLACE. PT IS STABLE.
--- NOTE | 2021-12-24 19:10 | NUR ---
ENDORSED TO WALL SCRAPER NURSE FOR CONTINUITY OF CARE. POC DISCUSSED.
[2021-12-25] MEDS: NACL 0.9% 1,000 ML IV SCH (06:21)
[2021-12-25] MEDS: BLOOD GLUCOSE MONITORING 1 DEV DEV FS SCH ×2 (06:37→11:30)
[2021-12-25 08:00] VITALS: BP 122/55
[2021-12-25 09:36] LABS: BASOPHILS % (AUTO) 0.3 % (0.0-2.0); EOSINOPHILS % (AUTO) 0.4 % (0.0-4.0); HEMATOCRIT 27.5 % (36-52); HEMOGLOBIN 9.4 g/dL (12.0-18.0); LYMPHOCYTES # (AUTO) 0.6 K/uL (2.0-11.5); LYMPHOCYTES % (AUTO) 11.4 % (20.5-51.1); MEAN CORPUSCULAR HEMOGLOBIN 30 pg (27-31); MEAN CORPUSCULAR HGB CONC 34 g/dL (33-37); MEAN CORPUSCULAR VOLUME 88.9 fL (80-94); MONOCYTES # (AUTO) 0.2 K/uL (0.8-1.0); MONOCYTES % (AUTO) 4.1 % (1.7-9.3); NEUTROPHILS # (AUTO) 4.1 K/uL (1.8-7.7); NEUTROPHILS % (AUTO) 83.8 % (42.2-75.2); PLATELET COUNT (AUTO) 325 K/uL (140-450); RED BLOOD CELL COUNT(AUTO) 3.09 MIL/uL (4.20-6.10); RED CELL DISTRIBUTION WIDTH 14.3 % (11.6-13.7); WHITE BLOOD COUNT (AUTO) 4.9 K/uL (4.8-10.8)
--- NOTE | 2021-12-25 09:46 | NUR ---
GAVE REPORT TO MARYCHUY LUO FOR CONTINUITY OF CARE.
--- NOTE | 2021-12-25 09:47 | NUR ---
RECEIVED REPORT FROM NURSE FOR CONTINUITY OF CARE. PT BREATHING IS EVEN AND UNLABORED. NO SIGNS OF DISTRESS NOTED. NO SIGNS OF PAIN OR DISCOMFORT NOTED. CALL LIGHT WITHIN REACH. ALL SAFETY MEASURES IN PLACE. PT IS STABLE.
[2021-12-25] MEDS: METOPROLOL SUCCINATE 50 MG TABER PO SCH (09:57)
[2021-12-25] MEDS: ATORVASTATIN 20 MG TAB PO SCH (09:58)
[2021-12-25] MEDS: ASPIRIN 81 MG TAB.CHEW PO SCH (09:58)
[2021-12-25 10:34] LABS: ANION GAP 10.6 (8-16); CARBON DIOXIDE 22.1 mmol/L (21-32); CHLORIDE 110 mmol/L (98-107); CREATININE 1.4 mg/dL (0.6-1.3); GLUCOSE 83 mg/dL (74-106); POTASSIUM 3.7 mmol/L (3.5-5.1); SODIUM SERUM 139 mmol/L (136-145); UREA NITROGEN, BLOOD 32 mg/dL (7-18)
[2021-12-25 11:47] VITALS: BP 122/55
[2021-12-25] MEDS: THERAHONEY GEL 42.5 GM TP SCH (13:58)
--- NOTE | 2021-12-25 14:44 | NUR ---
PHYSICAL THERAPY CO-SIGN The Physical Therapy Progress Notes documented by Differential Specialist have been reviewed. Reviewed/Co-Signed by: Irene Ríos Documentation Done by: LISE FORBES PTA Addendum: 12/25/21 at 1444 by Irene Ríos PT Amended: Links added.
--- NOTE | 2021-12-25 15:00 | NUR ---
PT DISCHARGED TO TRANSFER TO [facility]. PT IV INTACT. PT IS STABLE. REPIORT GIVEN TO NURSE AT [facility].
--- NOTE | 2021-12-26 09:20 | NUR ---
PHYSICAL THERAPY CO-SIGN The Physical Therapy Progress Notes documented by Judicial Assistant have been reviewed. Reviewed/Co-Signed by: Irene Ríos Documentation Done by: LISE FORBES PTA Addendum: 12/26/21 at 0920 by Irene Ríos PT Amended: Links added.
== END 2021-12-25 14:40 | DRG 853 ==
LOC: MED 09:23 → MTU 14:19 → MMU 12-12 10:02 → UNDODISIN 12-17 22:25 → MTU 12-18 00:21
PROVIDERS: ADMIT Internal Medicine; ATTEND Internal Medicine
PROC: 0JDN0ZZ Extraction of Right Lower Leg Subcutaneous Tissue and Fascia, Open Approach (ICD-10-PCS; 2021-12-16)
PROC: 0JDP0ZZ Extraction of Left Lower Leg Subcutaneous Tissue and Fascia, Open Approach (ICD-10-PCS; principal; 2021-12-16 08:35)
DX: A41.59 Other Gram-negative sepsis (principal); I21.A1 Myocardial infarction type 2; U07.1 COVID-19; E11.52 Type 2 diabetes mellitus with diabetic peripheral angiopathy with gangrene; N17.9 Acute kidney failure, unspecified; N39.0 Urinary tract infection, site not specified; M62.82 Rhabdomyolysis; L97.929 Non-pressure chronic ulcer of unspecified part of left lower leg with unspecified severity; L97.919 Non-pressure chronic ulcer of unspecified part of right lower leg with unspecified severity; L03.116 Cellulitis of left lower limb; L03.115 Cellulitis of right lower limb; E44.0 Moderate protein-calorie malnutrition; I50.22 Chronic systolic (congestive) heart failure; E86.0 Dehydration; I08.0 Rheumatic disorders of both mitral and aortic valves; I25.5 Ischemic cardiomyopathy; D64.9 Anemia, unspecified; E78.5 Hyperlipidemia, unspecified; I11.0 Hypertensive heart disease with heart failure; I25.10 Atherosclerotic heart disease of native coronary artery without angina pectoris; Z95.1 Presence of aortocoronary bypass graft; I25.2 Old myocardial infarction; Z83.3 Family history of diabetes mellitus; Z82.49 Family history of ischemic heart disease and other diseases of the circulatory system
CPT/HCPCS: 36415; 70450; 71045; 80048; 80053; 80202; 80305; 81001; 81025; 82140; 82550; 82553; 82948; 83036; 83605; 83735; 84484; 85025; 85730; 87040; 87081; 87086; 90471; 90715; 93005; 96365; 97110; 97112; 97116; 97163-GP; 97530; 99291; J0690; J1644; J2001; J2250; J2543; J2704; J3010; J3370; J3490; J7030; J7060; Q0092